=== PATIENT | male | born 1965 | race Caucasian/White ===

== ENCOUNTER 2020-01-31 13:00 | Inpatient (IN) | payer OTHER ==
[2020-01-31] MEDS ORDERED: DILTIAZEM DRIP BOLUS FROM BAG 1 MG SOLN IV ONE (13:19)
[2020-01-31 13:35] LABS: Basophils # (A) 0.1 k/uL (0-0.2); Basophils % (A) 1 %; Eosinophils % (A) 1 %; HCT 40.4 % (39.0-53.0); HGB 13.4 gm/dL (13.0-17.5); Lymphocytes # (A) 1.3 k/uL (1.0-4.8); Lymphocytes % (A) 17 %; MCHC 33.2 g/dL (31.0-37.0); MCV 105.2 fL (80.0-100.0); Macrocytosis Slight; Mean Platelet Volume 7.6; Monocytes # (A) 0.6 k/uL (0-1.0); Monocytes % (A) 8 %; Neutrophils # (A) 5.3 k/uL (1.3-7.7); Neutrophils % (A) 71 %; Platelet Count 276 k/uL (150-450); RBC 3.84 m/uL (4.30-5.90); RDW 13.1 % (11.5-15.5); WBC 7.6 k/uL (3.8-10.6)
[2020-01-31 13:45] LABS: ALT 81 U/L (4-49); AST 78 U/L (17-59); African American GFR (CKD) >90 (>60 ml/min/1.73 sqM); Albumin 4.1 g/dL (3.5-5.0); Alkaline Phosphatase 83 U/L (38-126); Anion Gap 5 mmol/L; Blood Urea Nitrogen 16 mg/dL (9-20); Carbon Dioxide 26 mmol/L (22-30); Chloride 107 mmol/L (98-107); Glucose 110 mg/dL (74-99); Magnesium 1.6 mg/dL (1.6-2.3); Non-African American GFR(CKD) >90 (>60 ml/min/1.73 sqM); Potassium 4.2 mmol/L (3.5-5.1); Sodium 138 mmol/L (137-145); Total Bilirubin 0.9 mg/dL (0.2-1.3); Total Protein 6.9 g/dL (6.3-8.2)
[2020-01-31] MEDS: DILTIAZEM 125 MG in SODIUM CHLORIDE 0.9% 100 ML IV SCH (13:47)
[2020-01-31 13:56] LABS: Partial Thromboplastin Time 25.6 sec (22.0-30.0)
--- NOTE | 2020-01-31 14:43 | XR ---
EXAMINATION TYPE: XR chest 2V DATE OF EXAM: 01/31/2020 COMPARISON: 03/07/2012 INDICATION: Dysrhythmia, fall TECHNIQUE: Frontal and lateral views of the chest are obtained. FINDINGS: The heart size is normal. The pulmonary vasculature is normal. No pneumothorax is evident The lungs are clear. There is hyperinflation and flattening the diaphragms compatible COPD. IMPRESSION: 1. No acute pulmonary process. 2. COPD
--- NOTE | 2020-01-31 14:45 | XR ---
EXAMINATION TYPE: XR foot complete RT DATE OF EXAM: 01/31/2020 COMPARISON: None HISTORY: Fall, pain TECHNIQUE: Three-view right foot FINDINGS: There is a transverse fracture of the proximal metaphyseal third metatarsal. No additional fractures are evident. Alignment appears preserved. Joint spaces are preserved. IMPRESSION: 1. Nondisplaced proximal third metatarsal metaphyseal fracture
--- NOTE | 2020-01-31 16:13 | ED ---
General Adult HPI - General Chief complaint: Recheck/Abnormal Lab/Rx Stated complaint: A Fib Time Seen by Provider: 01/31/20 13:05 Source: EMS Mode of arrival: EMS Limitations: no limitations - History of Present Illness Initial comments: Patient is a 54-year-old male with no reported past medical history who presents to the emergency department from urgent care. He states he presented there today because he fell off the couch yesterday. He rolled his right foot. He began having pain to the dorsum of his foot. Upon going into the urgent care and was noted that his heart rate was high. EKG was performed the patient was in A. fib. He denies previous history of irregular heart rhythm. Denies palpitations or chest pain. No previous cardiac history. Denies any fevers or chills. No shortness of breath. Denies any calf pain or swelling. No other alleviating, precipitating or modifying factors - Related Data Home Medications Medication Instructions Recorded Confirmed Ascorbic Acid [Vitamin C] 500 mg PO DAILY 01/31/20 01/31/20 Ibuprofen [Motrin] 800 mg PO Q8H PRN 01/31/20 01/31/20 Multivitamins, Thera [Multivitamin 1 tab PO DAILY 01/31/20 01/31/20 (formulary)] [place]-3 Fatty Acids/Fish Oil [Fish 1 cap PO DAILY 01/31/20 01/31/20 Oil 1,000 mg Softgel] Potassium Gluconate 99 mg PO DAILY 01/31/20 01/31/20 Allergies Allergy/AdvReac Type Severity Reaction Status Date / Time No Known Allergies Allergy Verified 01/31/20 14:12 Review of Systems ROS Statement: Those systems with pertinent positive or pertinent negative responses have been documented in the HPI. ROS Other: All systems not noted in ROS Statement are negative. Past Medical History Past Medical History: No Reported History History of Any Multi-Drug Resistant Organisms: None Reported Past Surgical History: No Surgical Hx Reported Past Psychological History: No Psychological Hx Reported Smoking Status: Current every day smoker Past Alcohol Use History: Occasional Past Drug Use History: Marijuana - Past Family History Father Family Medical History: Myocardial Infarction ([place]) Mother Family Medical History: Diabetes Mellitus General Exam Limitations: no limitations General appearance: alert, in no apparent distress Head exam: Present: atraumatic, normocephalic, normal inspection Eye exam: Present: normal appearance, PERRL, EOMI. Absent: scleral icterus, conjunctival injection, periorbital swelling ENT exam: Present: normal exam, mucous membranes moist Neck exam: Present: normal inspection. Absent: tenderness, meningismus, lymphadenopathy Respiratory exam: Present: normal lung sounds bilaterally. Absent: respiratory distress, wheezes, rales, rhonchi, stridor Cardiovascular Exam: Present: tachycardia, irregular rhythm, normal heart sounds. Absent: systolic murmur, diastolic murmur, rubs, gallop, clicks GI/Abdominal exam: Present: soft, normal bowel sounds. Absent: distended, tenderness, guarding, rebound, rigid Extremities exam: Present: full ROM, tenderness (right dorsal foot. overlying ecchymosis), normal capillary refill. Absent: pedal edema, joint swelling, calf tenderness Back exam: Present: normal inspection Neurological exam: Present: alert, oriented X3, CN II-XII intact Psychiatric exam: Present: normal affect, normal mood Skin exam: Present: warm, dry, intact, normal color. Absent: rash Course Vital Signs 01/31/20 01/31/20 01/31/20 13:04 13:23 14:31 Temperature 98.9 F Pulse Rate 83 162 H 140 H Respiratory 16 16 Rate Blood Pressure 142/105 118/88 O2 Sat by Pulse 95 96 Oximetry 01/31/20 01/31/20 01/31/20 14:49 15:28 16:50 Temperature Pulse Rate 113 H 91 110 H Respiratory 16 16 16 Rate Blood Pressure 129/99 122/88 108/88 O2 Sat by Pulse 95 97 99 Oximetry 01/31/20 17:15 Temperature Pulse Rate 115 H Respiratory 16 Rate Blood Pressure 103/81 O2 Sat by Pulse 97 Oximetry EKG Findings - EKG Comments: EKG Findings:: EKG at 1309 demonstrates A. fib with a rate of 13. QRS 80. QTC of 432. No acute ST segment elevations or depressions. EKG at 1320 demonstrates A. fib with a rate of 168. QRS E4. QTC of 464. No acute ST segment elevations or depressions Medical Decision Making - Medical Decision Making Upon arrival patient is placed into room 4. A thorough history and physical exam was performed. 12-lead EKG was performed which demonstrates A. fib with a rate of 183. Laboratory studies were conducted. IV was established the patient was started on Cardizem. Laboratory studies are unremarkable. Troponin is negative. Chest x-ray demonstrates no acute pulmonary process. Foot x-ray demonstrates a nondisplaced proximal third metatarsal fracture. Patient does have improvement in his heart rate on the Cardizem drip. Patient is placed in a posterior splint to the right lower extremity. I did recommend hospitalization for which the patient did agree to. Discussed the case with Dr. Sorensen who accepted admission. Cardiology will be consulted. He remained in stable condition - Lab Data Result diagrams: 02/04/20 07:16 02/04/20 07:16 Lab Results 01/31/20 01/31/20 01/31/20 Range/Units 13:20 13:20 13:20 WBC 7.6 (3.8-10.6) k/uL RBC 3.84 L (4.30-5.90) m/uL Hgb 13.4 (13.0-17.5) gm/dL Hct 40.4 (39.0-53.0) % MCV 105.2 H (80.0-100.0) fL MCH 35.0 (25.0-35.0) pg MCHC 33.2 (31.0-37.0) g/dL RDW 13.1 (11.5-15.5) % Plt Count 276 (150-450) k/uL Neutrophils % 71 % Lymphocytes % 17 % Monocytes % 8 % Eosinophils % 1 % Basophils % 1 % Neutrophils # 5.3 (1.3-7.7) k/uL Lymphocytes # 1.3 (1.0-4.8) k/uL Monocytes # 0.6 (0-1.0) k/uL Eosinophils # 0.0 (0-0.7) k/uL Basophils # 0.1 (0-0.2) k/uL Macrocytosis Slight PT 10.0 (9.0-12.0) sec INR 1.0 (<1.2) APTT 25.6 (22.0-30.0) sec Sodium 138 (137-145) mmol/L Potassium 4.2 (3.5-5.1) mmol/L Chloride 107 (98-107) mmol/L Carbon Dioxide 26 (22-30) mmol/L Anion Gap 5 mmol/L BUN 16 (9-20) mg/dL Creatinine 0.66 (0.66-1.25) mg/dL Est GFR (CKD-EPI)AfAm >90 (>60 ml/min/1.73 sqM) Est GFR (CKD-EPI)NonAf >90 (>60 ml/min/1.73 sqM) Glucose 110 H (74-99) mg/dL Calcium 9.0 (8.4-10.2) mg/dL Magnesium 1.6 (1.6-2.3) mg/dL Total Bilirubin 0.9 (0.2-1.3) mg/dL AST 78 H (17-59) U/L ALT 81 H (4-49) U/L Alkaline Phosphatase 83 (38-126) U/L Troponin I (0.000-0.034) ng/mL Total Protein 6.9 (6.3-8.2) g/dL Albumin 4.1 (3.5-5.0) g/dL TSH 2.040 (0.465-4.680) mIU/L 01/31/20 Range/Units 13:20 WBC (3.8-10.6) k/uL RBC (4.30-5.90) m/uL Hgb (13.0-17.5) gm/dL Hct (39.0-53.0) % MCV (80.0-100.0) fL MCH (25.0-35.0) pg MCHC (31.0-37.0) g/dL RDW (11.5-15.5) % Plt Count (150-450) k/uL Neutrophils % % Lymphocytes % % Monocytes % % Eosinophils % % Basophils % % Neutrophils # (1.3-7.7) k/uL Lymphocytes # (1.0-4.8) k/uL Monocytes # (0-1.0) k/uL Eosinophils # (0-0.7) k/uL Basophils # (0-0.2) k/uL Macrocytosis PT (9.0-12.0) sec INR (<1.2) APTT (22.0-30.0) sec Sodium (137-145) mmol/L Potassium (3.5-5.1) mmol/L Chloride (98-107) mmol/L Carbon Dioxide (22-30) mmol/L Anion Gap mmol/L BUN (9-20) mg/dL Creatinine (0.66-1.25) mg/dL Est GFR (CKD-EPI)AfAm (>60 ml/min/1.73 sqM) Est GFR (CKD-EPI)NonAf (>60 ml/min/1.73 sqM) Glucose (74-99) mg/dL Calcium (8.4-10.2) mg/dL Magnesium (1.6-2.3) mg/dL Total Bilirubin (0.2-1.3) mg/dL AST (17-59) U/L ALT (4-49) U/L Alkaline Phosphatase (38-126) U/L Troponin I <0.012 (0.000-0.034) ng/mL Total Protein (6.3-8.2) g/dL Albumin (3.5-5.0) g/dL TSH (0.465-4.680) mIU/L Critical Care Time Critical Care Time: Yes Critical Care Time: 35 minutes Disposition Clinical Impression: Atrial fibrillation with RVR, Metatarsal fracture Disposition: ADMITTED IP TO THIS [facility] Condition: Serious Is patient prescribed a controlled substance at d/c from ED?: No Decision to Admit Reason: Admit from EC Decision Date: 01/31/20 Decision Time: 16:16
[2020-01-31] MEDS ORDERED: NALOXONE 0.4 MG/ML 1 ML VIAL IV PRN (16:16)
[2020-01-31] MEDS ORDERED: HEPARIN SODIUM,PORCINE 5,000 UNIT/ML 1 ML VIAL IV ONE (16:18)
[2020-01-31] MEDS ORDERED: HEPARIN SODIUM,PORCINE 5,000 UNIT/ML 1 ML VIAL IV PRN (16:18)
[2020-01-31] MEDS ORDERED: HEPARIN SOD,PORK IN 0.45% NACL 25,000 UNIT in 0.45% NACL 1 250ML.BAG IV SCH (16:30)
[2020-02-01] MEDS: DILTIAZEM 125 MG in SODIUM CHLORIDE 0.9% 100 ML IV SCH (00:15)
[2020-02-01] MEDS: FAMOTIDINE 20 MG/2 ML VIAL IV SCH ×2 (08:39→20:41)
[2020-02-01 08:59] LABS: Basophils # (A) 0.1 k/uL (0-0.2); Basophils % (A) 1 %; Eosinophils # (A) 0.1 k/uL (0-0.7); Eosinophils % (A) 2 %; Lymphocytes # (A) 1.2 k/uL (1.0-4.8); Lymphocytes % (A) 20 %; MCH 34.6 pg (25.0-35.0); MCHC 32.4 g/dL (31.0-37.0); MCV 106.7 fL (80.0-100.0); Macrocytosis Moderate; Mean Platelet Volume 8.2; Monocytes # (A) 0.5 k/uL (0-1.0); Monocytes % (A) 8 %; Neutrophils # (A) 4.2 k/uL (1.3-7.7); Neutrophils % (A) 67 %; Platelet Count 258 k/uL (150-450); RBC 3.75 m/uL (4.30-5.90); WBC 6.2 k/uL (3.8-10.6)
[2020-02-01] MEDS ORDERED: METOPROLOL TARTRATE 25 MG TAB PO SCH (09:00)
[2020-02-01 09:04] LABS: ALT 66 U/L (4-49); AST 52 U/L (17-59); African American GFR (CKD) >90 (>60 ml/min/1.73 sqM); Albumin 3.8 g/dL (3.5-5.0); Alkaline Phosphatase 73 U/L (38-126); Anion Gap 4 mmol/L; Bilirubin, Delta 0.2 mg/dL (0.0-0.2); Bilirubin,Unconjugated 0.9 mg/dL (0.0-1.1); Blood Urea Nitrogen 12 mg/dL (9-20); Calcium 8.7 mg/dL (8.4-10.2); Carbon Dioxide 28 mmol/L (22-30); Chloride 103 mmol/L (98-107); Cholesterol 194 mg/dL (<200); Glucose 146 mg/dL (74-99); Magnesium 1.6 mg/dL (1.6-2.3); Non-African American GFR(CKD) >90 (>60 ml/min/1.73 sqM); Potassium 4.4 mmol/L (3.5-5.1); Sodium 135 mmol/L (137-145); Total Bilirubin 1.1 mg/dL (0.2-1.3); Total Protein 6.5 g/dL (6.3-8.2); Triglycerides 58 mg/dL (<150)
--- NOTE | 2020-02-01 09:05 | P.HPIM ---
History of Present Illness This is a pleasant 54 years old male with no significant past medical history, he smokes cigarettes every day about 1 pack per day, drinks half pint of liquor every day and smokes marijuana. He presents because of right foot pain, patient states that 2 days ago he was drinking at his couch and He was getting up to go to sleep when he tripped and fell and he hurt his right foot, patient is not sure if he passed out or no because he has been drinking. However he denies any chest pain or dyspnea or diarrhea or vomiting or other complaints, patient has been complaining of from right foot pain so he went to see his PCP Dr. Cotter me when he was noticed to have high heart rate about 160 and he was referred to emergency room Asthma about 1 pack per day, patient is counseled and he wants to quit but he declined a nicotine patch. He drinks about half pint of liquor every day, and uses marijuana with no other illicit drugs He denies depression or suicidal ideation Abdomen unremarkable CBC, INR, BMP. Liver enzymes slightly elevated with AST 78 and ALT 81, troponin 3 are negative with less than 0.012. EKG showing atrial fibrillation with RVR at 183. TSH is normal at 2.0 Right foot x-ray showing nondisplaced proximal third metatarsal metaphyseal fracture Chest x-ray: No acute process., COPD The emergency room patient was started on heparin and Cardizem drips Review of Systems CONSTITUTIONAL: No fever, no malaise, no fatigue. HEENT: No recent visual problems or hearing problems. Denied any sore throat. CARDIOVASCULAR: No orthopnea, PND, no palpitations, no syncope. PULMONARY: No shortness of breath, no cough, no hemoptysis. GASTROINTESTINAL: No diarrhea, no nausea, no vomiting, no abdominal pain. Normoactive bowel sounds. NEUROLOGICAL: No headaches, no weakness, no numbness. HEMATOLOGICAL: Denies any bleeding or petechiae. GENITOURINARY: Denies any burning micturition, frequency, or urgency. MUSCULOSKELETAL/RHEUMATOLOGICAL: Denies any joint pain, swelling, or any muscle pain. ENDOCRINE: Denies any polyuria or polydipsia. Past Medical History Past Medical History: No Reported History History of Any Multi-Drug Resistant Organisms: None Reported Past Surgical History: No Surgical Hx Reported Additional Past Anesthesia/Blood Transfusion Reaction / Comment(s): never recieved Past Psychological History: No Psychological Hx Reported Smoking Status: Current every day smoker Past Alcohol Use History: Occasional Past Drug Use History: Marijuana - Past Family History Father Family Medical History: Myocardial Infarction ([place]) Mother Family Medical History: Diabetes Mellitus Medications and Allergies Home Medications Medication Instructions Recorded Confirmed Type Ascorbic Acid [Vitamin C] 500 mg PO DAILY 01/31/20 01/31/20 History Ibuprofen [Motrin] 800 mg PO Q8H PRN 01/31/20 01/31/20 History Multivitamins, Thera [Multivitamin 1 tab PO DAILY 01/31/20 01/31/20 History (formulary)] [place]-3 Fatty Acids/Fish Oil [Fish 1 cap PO DAILY 01/31/20 01/31/20 History Oil 1,000 mg Softgel] Potassium Gluconate 99 mg PO DAILY 01/31/20 01/31/20 History Allergies Allergy/AdvReac Type Severity Reaction Status Date / Time No Known Allergies Allergy Verified 01/31/20 14:12 Physical Exam Vitals: Vital Signs Temp Pulse Pulse Resp BP BP Pulse Ox 02/01/20 03:51 97.8 F 78 16 117/80 94 L 01/31/20 22:16 98.1 F 78 18 109/75 95 01/31/20 20:00 98.1 F 78 18 109/75 95 01/31/20 18:54 103 H 18 01/31/20 18:01 97.7 F 103 H 18 115/72 97 01/31/20 17:15 115 H 16 103/81 97 01/31/20 16:50 110 H 16 108/88 99 01/31/20 15:28 91 16 122/88 97 01/31/20 14:49 113 H 16 129/99 95 01/31/20 14:31 140 H 16 118/88 96 01/31/20 13:23 162 H 01/31/20 13:04 98.9 F 83 16 142/105 95 Intake and Output 01/31/20 02/01/20 02/01/20 22:59 06:59 14:59 Intake Total 620 268.301 Output Total 225 Balance 620 43.301 Intake: IV 20 123.2 .9 @ 10 20 Diltiazem 125 mg In 70 Sodium Chloride 0.9% 100 ml @ Per Protocol IV .Q0M MELISSA Rx#:[id number] Heparin Sod,Pork in 0.45% 53.2 NaCl 25,000 unit In 0.45 % NaCl 1 250ml.bag @ 12 UNITS/KG/HR 7.62 mls/hr IV .Q24H MELISSA Rx#: [id number] Intake, IV Titration 145.101 Amount Diltiazem 125 mg In 96.333 Sodium Chloride 0.9% 100 ml @ Per Protocol IV .Q0M MELISSA Rx#:[id number] Heparin Sod,Pork in 0.45% 48.768 NaCl 25,000 unit In 0.45 % NaCl 1 250ml.bag @ 12 UNITS/KG/HR 7.62 mls/hr IV .Q24H MELISSA Rx#: [id number] Oral 600 Output: Urine 225 Other: Voiding Method Urinal Urinal # Voids 1 Weight 62 kg GENERAL: The patient is alert and oriented x3, not in any acute distress. Well developed, well nourished. HEENT: Pupils are round and equally reacting to light. EOMI. No scleral icterus. No conjunctival pallor. Normocephalic, atraumatic. No pharyngeal erythema. No thyromegaly. CARDIOVASCULAR: S1 and S2 present. No murmurs, rubs, or gallops. PULMONARY: Chest is clear to auscultation, no wheezing or crackles. ABDOMEN: Soft, nontender, nondistended, normoactive bowel sounds. No palpable organomegaly. MUSCULOSKELETAL: No joint swelling or deformity. -EXTREMITIES: No cyanosis, clubbing, or pedal edema. Right foot in temporal cast with dressing NEUROLOGICAL: Gross neurological examination did not reveal any focal deficits. SKIN: No rashes. No petechiae Results CBC & Chem 7: 02/01/20 07:47 01/31/20 13:20 Labs: Abnormal Lab Results - Last 24 Hours (Table) 01/31/20 01/31/20 01/31/20 Range/Units 13:20 13:20 22:09 RBC 3.84 L (4.30-5.90) m/uL MCV 105.2 H (80.0-100.0) fL APTT 36.9 H (22.0-30.0) sec Glucose 110 H (74-99) mg/dL AST 78 H (17-59) U/L ALT 81 H (4-49) U/L Thrombosis Risk Factor Assmnt - Choose All That Apply Any of the Below Risk Factors Present?: Yes Each Factor Represents 1 point: Age 41-60 years Other Risk Factors: No Other congenital or acquired thrombophilia - If yes, enter type in comment: No Thrombosis Risk Factor Assessment Total Risk Factor Score: 1 Thrombosis Risk Factor Assessment Level: Low Risk Assessment and Plan Assessment: A. fib with RVR, new onset and present on admission Right foot acute nondisplaced fracture of the third metatarsal metaphyseal bone Nicotine dependence Alcohol abuse, at-risk of alcohol withdrawal Mild alcoholic transaminitis Substance abuse with cannabis Plan: This is a pleasant 54 years old male who presents with a new onset A. fib and right foot fracture. Continue with Cardizem drip and heparin and switch to oral beta toney/calcium channel toney and Eliquis when heart rate is controlled per cardiology team recommendation. Monitor liver enzymes, continue with CIWA protocol and thiamine. Consult orthopedic team for his right foot fracture Labs and medication were reviewed.. Continue same treatment. Continue with symptomatic treatment. Resume home medication. Monitor lytes and vitals. DVT and GI prophylaxis. Further recommendations depends on the clinical course of the patient DVT prophylaxis: heparin GI Prophylaxis: Pepcid PT/OT: Pending, deferred to orthopedic evaluated the patient
[2020-02-01] MEDS ORDERED: THIAMINE 100 MG TAB PO SCH (09:15)
[2020-02-01 09:19] LABS: Partial Thromboplastin Time 39.5 sec (22.0-30.0)
[2020-02-01] MEDS ORDERED: LORazepam 2 MG/ML INJ IV PRN ×3 (09:24)
[2020-02-01] MEDS ORDERED: THIAMINE 100 MG/ML 2 ML VIAL IM STA (09:24)
[2020-02-01] MEDS ORDERED: METOPROLOL TARTRATE 25 MG TAB PO STA (09:40)
--- NOTE | 2020-02-01 09:44 | P.CNOR ---
History of Present Illness - [facility] Consult date: 02/01/20 Consult reason: fracture (Right foot) History of present illness: This is a 54-year-old gentleman who presented to the emergency department with complaint of right foot pain after falling off a couch. He was noted to be in atrial fibrillation and was admitted to the selective care unit. Orthopedics is consulted for fractures to the right foot. Past Medical History Past Medical History: No Reported History History of Any Multi-Drug Resistant Organisms: None Reported Past Surgical History: No Surgical Hx Reported Additional Past Anesthesia/Blood Transfusion Reaction / Comm: never recieved Past Psychological History: No Psychological Hx Reported Smoking Status: Current every day smoker Past Alcohol Use History: Occasional Past Drug Use History: Marijuana - Past Family History Father Family Medical History: Myocardial Infarction ([place]) Mother Family Medical History: Diabetes Mellitus Medications and Allergies Home Medications Medication Instructions Recorded Confirmed Type Ascorbic Acid [Vitamin C] 500 mg PO DAILY 01/31/20 01/31/20 History Ibuprofen [Motrin] 800 mg PO Q8H PRN 01/31/20 01/31/20 History Multivitamins, Thera [Multivitamin 1 tab PO DAILY 01/31/20 01/31/20 History (formulary)] [place]-3 Fatty Acids/Fish Oil [Fish 1 cap PO DAILY 01/31/20 01/31/20 History Oil 1,000 mg Softgel] Potassium Gluconate 99 mg PO DAILY 01/31/20 01/31/20 History Allergies Allergy/AdvReac Type Severity Reaction Status Date / Time No Known Allergies Allergy Verified 01/31/20 14:12 Physical Examination This is a pleasant 54-year-old male in no acute distress. He is alert and oriented 3. Exam of the head neck reveal no obvious deformity. He has full cervical spine motion without pain or difficulty. There is no tenderness with palpation about the cervical spine or paraspinal musculature. Exam the upper extremities reveals no obvious deformity. He has full shoulder, elbow, wrist and finger motion bilaterally. Neurovascular status to the upper extremities is intact. Exam of the lower extremities reveals a short leg splint in place to the right lower extremity. Splint is removed. He has swelling and ecchymosis to the dorsum of the right foot. There is tenderness with palpation about the base of the third metatarsal. He also has tenderness about the tarsal navicular medially. No pain with palpation about the calcaneus or the ankle. Neurovascular status to the lower extremity is intact. Results Right foot x-rays reveal a nondisplaced fracture of the base of the third metatarsal. There is also a small avulsion noted which appears to be possibly off of the navicular. No other fractures identified. - Labs Labs: Abnormal Lab Results - Last 24 Hours (Table) 01/31/20 01/31/20 01/31/20 Range/Units 13:20 13:20 22:09 RBC 3.84 L (4.30-5.90) m/uL MCV 105.2 H (80.0-100.0) fL APTT 36.9 H (22.0-30.0) sec Sodium (137-145) mmol/L Creatinine (0.66-1.25) mg/dL Glucose 110 H (74-99) mg/dL AST 78 H (17-59) U/L ALT 81 H (4-49) U/L 02/01/20 02/01/20 02/01/20 Range/Units 07:47 07:47 08:01 RBC 3.75 L (4.30-5.90) m/uL MCV 106.7 H (80.0-100.0) fL APTT 39.5 H (22.0-30.0) sec Sodium 135 L (137-145) mmol/L Creatinine 0.61 L (0.66-1.25) mg/dL Glucose 146 H (74-99) mg/dL AST (17-59) U/L ALT 66 H (4-49) U/L H & H 01/31/20 02/01/20 Range/Units 13:20 07:47 Hgb 13.4 13.0 (13.0-17.5) gm/dL Hct 40.4 40.0 (39.0-53.0) % Coagulation 01/31/20 02/01/20 Range/Units 13:20 07:47 INR 1.0 1.0 (<1.2) Result Diagrams: 02/01/20 07:47 02/01/20 08:01 Assessment and Plan (1) Atrial fibrillation with RVR Current Visit: Yes Status: Acute Code(s): I48.91 - UNSPECIFIED ATRIAL FIBRILLATION SNOMED Code(s): 536629861913207 (2) Metatarsal fracture Current Visit: Yes Status: Acute Code(s): S92.309A - FRACTURE OF UNSP METATARSAL BONE(S), UNSP FOOT, INIT SNOMED Code(s): 630907193 Plan: The clinical and x-ray findings are discussed with the patient. Fracture care is discussed. He will be placed in an equalizer boot for fracture immobilization. He may bear weight in the boot as tolerated. He is to follow- up in 2-3 weeks for follow-up x-ray and exam.
--- NOTE | 2020-02-01 10:44 | P.CRDCN ---
History of Present Illness History of present illness: HISTORY OF PRESENTING ILLNESS This is a pleasant 54-year-old male past medical history significant for chronic nicotine dependence and daily alcohol intake. He denies prior history of coronary artery disease and does not follow with a lens hardener for any reason. We have been asked to see in consultation for atrial fibrillation. He presents to the hospital with symptoms of right foot pain. He states he had tripped and fallen the night before. His foot initially didn't hurt and he thought it was just cramp which she does get from time to time. Imaging revealed he did have a third metatarsal fracture. An EKG was obtained revealing he was in atrial fibrillation with heart rate of 185. He was initiated on IV heparin along with IV Cardizem. This morning he is seen and examined sitting up in bed in no acute distress. He denies ever having had symptoms of palpitati ons, dizziness, chest pain or shortness of breath. Continues to be in A. fib with heart rates in the 90s currently. X-ray reveals no acute cardiopulmonary process with hyperinflation and flattening of the diaphragm compatible with COPD. Laboratory data reviewed, WBC 6.2, hemoglobin 13, platelets 258, sodium 135, potassium 4.4, creatinine 0.61, magnesium 1.6, cardiac enzymes negative 3, TSH 2.04. REVIEW OF SYSTEMS At the time of my exam: CONSTITUTIONAL: Denies fever or chills. CARDIOVASCULAR: Denies chest pain, shortness of breath, orthopnea, PND or palpitations. RESPIRATORY: Denies cough. GASTROINTESTINAL: Denies abdominal pain, diarrhea, constipation, nausea or vomiting. MUSCULOSKELETAL: Complains of right foot pain. NEUROLOGIC: Denies numbness, tingling or weakness. ENDOCRINE: Denies fatigue, weight change, polydipsia or polyurina. GENITOURINARY: Denies burning, hematuria or urgency with micturation. HEMATOLOGIC: Denies history of anemia or bleeding. PHYSICAL EXAMINATION Blood pressure 105/71 heart rate 79 afebrile and maintaining oxygen saturation on room air. CONSTITUTIONAL: No apparent distress. HEENT: Head is normocephalic. Pupils are equal, round. Sclerae anicteric. Mucous membranes of the mouth are moist. No JVD. No carotid bruit. CHEST EXAMINATION: Lungs are clear to auscultation. No chest wall tenderness is noted on palpation or with deep breathing. Diminished bilaterally. HEART EXAMINATION: Irregular rate and rhythm. S1, S2 heard. No murmurs, gallops or rub. Distant heart sounds. ABDOMEN: Soft, nontender. Positive bowel sounds. EXTREMITIES: Dorsalis pedis pulse on the right by Doppler, nonpalpable pulses on the left. Bilateral feet are warm to touch. Right foot has swelling to the anterior portion. No calf tenderness noted. NEUROLOGIC EXAMINATION: Patient is awake, alert and oriented x3. ASSESSMENT New-onset paroxysmal atrial fibrillation with rapid ventricular rate, currently in afib. Right metatarsal fracture, orthopedics is recommending boot immobilization and outpatient follow-up Chronic nicotine dependence Daily alcohol intake PLAN Obtain 2-D echocardiogram and Doppler study to assess cardiac structure and function. Initiate Lopressor 50 mg twice a day. Continue IV Cardizem until rates are more controlled. CHADS-VASC currently 0, howerver we will initiate Eliquis 5 mg twice a day for thromboembolic protection in case he requires cardioversion or ablation in the future. Check lipid panel. Complete alcohol cessation discussed in great detail with the patient. Thank you kindly for this consultation. Nurse Practitioner note has been reviewed, I agree with a documented findings and plan of care. Patient was seen and examined. Past Medical History Past Medical History: No Reported History History of Any Multi-Drug Resistant Organisms: None Reported Past Surgical History: No Surgical Hx Reported Additional Past Anesthesia/Blood Transfusion Reaction / Comment(s): never recieved Past Psychological History: No Psychological Hx Reported Smoking Status: Current every day smoker Past Alcohol Use History: Occasional Past Drug Use History: Marijuana - Past Family History Father Family Medical History: Myocardial Infarction ([place]) Mother Family Medical History: Diabetes Mellitus Medications and Allergies Home Medications Medication Instructions Recorded Confirmed Type Ascorbic Acid [Vitamin C] 500 mg PO DAILY 01/31/20 01/31/20 History Ibuprofen [Motrin] 800 mg PO Q8H PRN 01/31/20 01/31/20 History Multivitamins, Thera [Multivitamin 1 tab PO DAILY 01/31/20 01/31/20 History (formulary)] Radiant-3 Fatty Acids/Fish Oil [Fish 1 cap PO DAILY 01/31/20 01/31/20 History Oil 1,000 mg Softgel] Potassium Gluconate 99 mg PO DAILY 01/31/20 01/31/20 History Allergies Allergy/AdvReac Type Severity Reaction Status Date / Time No Known Allergies Allergy Verified 01/31/20 14:12 Physical Exam Vitals: Vital Signs Temp Pulse Pulse Resp BP BP Pulse Ox 02/01/20 03:51 97.8 F 78 16 117/80 94 L 01/31/20 22:16 98.1 F 78 18 109/75 95 01/31/20 20:00 98.1 F 78 18 109/75 95 01/31/20 18:54 103 H 18 01/31/20 18:01 97.7 F 103 H 18 115/72 97 01/31/20 17:15 115 H 16 103/81 97 01/31/20 16:50 110 H 16 108/88 99 01/31/20 15:28 91 16 122/88 97 01/31/20 14:49 113 H 16 129/99 95 01/31/20 14:31 140 H 16 118/88 96 01/31/20 13:23 162 H 01/31/20 13:04 98.9 F 83 16 142/105 95 Intake and Output 01/31/20 02/01/20 02/01/20 22:59 06:59 14:59 Intake Total 620 268.301 Output Total 225 Balance 620 43.301 Intake: IV 20 123.2 .9 @ 10 20 Diltiazem 125 mg In 70 Sodium Chloride 0.9% 100 ml @ Per Protocol IV .Q0M MELISSA Rx#:[id number] Heparin Sod,Pork in 0.45% 53.2 NaCl 25,000 unit In 0.45 % NaCl 1 250ml.bag @ 12 UNITS/KG/HR 7.62 mls/hr IV .Q24H MELISSA Rx#: [id number] Intake, IV Titration 145.101 Amount Diltiazem 125 mg In 96.333 Sodium Chloride 0.9% 100 ml @ Per Protocol IV .Q0M MELISSA Rx#:[id number] Heparin Sod,Pork in 0.45% 48.768 NaCl 25,000 unit In 0.45 % NaCl 1 250ml.bag @ 12 UNITS/KG/HR 7.62 mls/hr IV .Q24H MELISSA Rx#: [id number] Oral 600 Output: Urine 225 Other: Voiding Method Urinal Urinal # Voids 1 Weight 62 kg Results 02/01/20 07:47 02/01/20 08:01 Cardiac Enzymes 01/31/20 01/31/20 01/31/20 Range/Units 13:20 13:20 19:00 AST 78 H (17-59) U/L Troponin I <0.012 <0.012 (0.000-0.034) ng/mL 01/31/20 Range/Units 22:09 AST (17-59) U/L Troponin I <0.012 (0.000-0.034) ng/mL Coagulation 01/31/20 01/31/20 Range/Units 13:20 22:09 PT 10.0 (9.0-12.0) sec APTT 25.6 36.9 H (22.0-30.0) sec CBC 01/31/20 Range/Units 13:20 WBC 7.6 (3.8-10.6) k/uL RBC 3.84 L (4.30-5.90) m/uL Hgb 13.4 (13.0-17.5) gm/dL Hct 40.4 (39.0-53.0) % Plt Count 276 (150-450) k/uL Comprehensive Metabolic Panel 01/31/20 Range/Units 13:20 Sodium 138 (137-145) mmol/L Potassium 4.2 (3.5-5.1) mmol/L Chloride 107 (98-107) mmol/L Carbon Dioxide 26 (22-30) mmol/L BUN 16 (9-20) mg/dL Creatinine 0.66 (0.66-1.25) mg/dL Glucose 110 H (74-99) mg/dL Calcium 9.0 (8.4-10.2) mg/dL AST 78 H (17-59) U/L ALT 81 H (4-49) U/L Alkaline Phosphatase 83 (38-126) U/L Total Protein 6.9 (6.3-8.2) g/dL Albumin 4.1 (3.5-5.0) g/dL Current Medications Generic Name Dose Route Start Last Admin Trade Name Freq PRN Reason Stop Dose Admin Heparin Sodium (Porcine) 0 unit 01/31/20 16:18 Heparin Sodium,Porcine 5,000 Unit/Ml 1 Ml Vial IV PER PROTOCOL PRN Low PTT Protocol Diltiazem HCl 125 mg/ Sodium 125 mls @ 0 mls/hr 01/31/20 13:30 02/01/20 00:15 Chloride IV 10 ml/hr .Q0M MELISSA 10 mls/hr Administration Protocol Per Protocol Heparin Sodium/Sodium Chloride 250 mls @ 7.62 mls/hr 01/31/20 16:30 01/31/20 23:12 25,000 unit/ Sodium Chloride IV 14 units/kg/hr .Q24H MELISSA 8.89 mls/hr Titration Protocol 12 UNITS/KG/HR Naloxone HCl 0.2 mg 01/31/20 16:16 Naloxone 0.4 Mg/Ml 1 Ml Vial IV Q2M PRN Opioid Reversal Intake and Output 01/31/20 02/01/20 02/01/20 22:59 06:59 14:59 Intake Total 620 268.301 Output Total 225 Balance 620 43.301 Intake: IV 20 123.2 .9 @ 10 20 Diltiazem 125 mg In 70 Sodium Chloride 0.9% 100 ml @ Per Protocol IV .Q0M MELISSA Rx#:[id number] Heparin Sod,Pork in 0.45% 53.2 NaCl 25,000 unit In 0.45 % NaCl 1 250ml.bag @ 12 UNITS/KG/HR 7.62 mls/hr IV .Q24H MELISSA Rx#: [id number] Intake, IV Titration 145.101 Amount Diltiazem 125 mg In 96.333 Sodium Chloride 0.9% 100 ml @ Per Protocol IV .Q0M MELISSA Rx#:[id number] Heparin Sod,Pork in 0.45% 48.768 NaCl 25,000 unit In 0.45 % NaCl 1 250ml.bag @ 12 UNITS/KG/HR 7.62 mls/hr IV .Q24H MELISSA Rx#: [id number] Oral 600 Output: Urine 225 Other: Voiding Method Urinal Urinal # Voids 1 Weight 62 kg 01/31/20 13:20 01/31/20 13:20
[2020-02-01 11:10] VITALS: BMI 19.1
[2020-02-01] MEDS: APIXABAN 5 MG TAB PO SCH ×2 (11:44→20:41)
[2020-02-01 11:58] LABS: LDL Cholesterol,Calculated 63 mg/dL (0-99)
--- NOTE | 2020-02-01 12:03 | ECHOF ---
Referral Reason:new onset afib MEASUREMENTS -------- HEIGHT: 162.6 cm WEIGHT: 63.5 kg BP: RVIDd: 2.3 cm (< 3.3) IVSd: 0.8 cm (0.6 - 1.1) LVIDd: 5.4 cm (3.9 - 5.3) LVPWd: 1.1 cm (0.6 - 1.1) IVSs: 1.1 cm LVIDs: 4.5 cm LVPWs: 1.5 cm LA Diam: 3.5 cm (2.7 - 3.8) LAESV Index (A-L): 28.19 ml/m Ao Diam: 3.0 cm (2.0 - 3.7) AV Cusp: 1.7 cm (1.5 - 2.6) MV EXCURSION: 23.948 mm (> 18.000) MV EF SLOPE: 119 mm/s (70 - 150) EPSS: 1.6 cm RAP: 5.00 mmHg RVSP: 31.67 mmHg FINDINGS -------- Atrial fibrillation. This was a technically good study. The left ventricular size is normal. Left ventricular wall thickness is normal. Overall left vent ricular systolic function is moderate-severely impaired with, an EF between 30 - 35 %. Anterseptal Hypokinesis Septal Hypokinesis The right ventricle is normal in size. The left atrial size is normal. The right atrial size is normal. The aortic valve is trileaflet, and appears structurally normal. No aortic stenosis or regurgitation. Mild mitral regurgitation is present. Mild tricuspid regurgitation present. Right ventricular systolic pressure is normal at < 35 mmHg. There is no pulmonic regurgitation present. The aortic root size is normal. There is no pericardial effusion. CONCLUSIONS -------- 1. The left ventricular size is normal. 2. Left ventricular wall thickness is normal. 3. Overall left ventricular systolic function is moderate-severely impaired with, an EF between 30 - 35 %. 4. Anterseptal Hypokinesis 5. Septal Hypokinesis 6. The right ventricle is normal in size. 7. The left atrial size is normal. 8. The right atrial size is normal. 9. Mild mitral regurgitation is present. 10. Mild tricuspid regurgitation present. 11. There is no pulmonic regurgitation present. 12. The aortic root size is normal. 13. There is no pericardial effusion. RET[employer]ODUCT DEMO SPECIALIST: Michelle Colon RDCS
[2020-02-01 12:07] LABS: HDL Cholesterol 119 mg/dL (40-60)
[2020-02-01] MEDS ORDERED: HYDROcodone/APAP 5-325MG 1 EACH TAB PO PRN (15:34)
[2020-02-01] MEDS: THIAMINE 100 MG TAB PO SCH (17:40)
[2020-02-01] MEDS ORDERED: METOPROLOL TARTRATE 50 MG TAB PO SCH (21:00)
[2020-02-02] MEDS: THIAMINE 100 MG TAB PO SCH ×2 (06:45→17:10)
--- NOTE | 2020-02-02 08:49 | P.PN ---
Subjective Progress Note Date: 02/02/20 Principal diagnosis: Right foot fracture. Atrial fibrillation with RVR. This is a 54-year-old gentleman who presented to the emergency department with complaint of right foot pain after falling off a couch. He was noted to be in atrial fibrillation and was admitted to the selective care unit. Orthopedics is consulted for fractures to the right foot. 02/02/2020: Patient has received his boot. He has no new complaints or concerns from an orthopedic standpoint. Vital signs are stable at this time. Objective - Vital Signs Vital signs: Vital Signs Temp 98.1 F 02/02/20 04:00 Pulse 133 H 02/02/20 04:00 Resp 18 02/02/20 04:00 BP 116/70 02/02/20 04:00 Pulse Ox 97 02/02/20 04:00 Intake & Output 02/01/20 02/02/20 02/02/20 18:59 06:59 18:59 Intake Total 458 120 Output Total 425 Balance 33 120 Weight 62 kg 59.9 kg Intake: Oral 458 120 Output: Urine 425 Other: Voiding Method Urinal # Voids 2 2 0 # Bowel Movements 1 0 - Exam This is a pleasant 54-year-old male in no acute distress. He is alert and oriented at this time. Exam of the right foot reveals continued swelling and ecchymosis. The boot is at the bedside. He has full ankle motion without difficulty or pain. Neurovascular status to the lower extremities intact. - Labs CBC & Chem 7: 02/01/20 07:47 02/01/20 08:01 Labs: Abnormal Lab Results - Last 24 Hours (Table) 02/01/20 02/01/20 02/01/20 Range/Units 07:47 07:47 08:01 RBC 3.75 L (4.30-5.90) m/uL MCV 106.7 H (80.0-100.0) fL APTT 39.5 H (22.0-30.0) sec Sodium 135 L (137-145) mmol/L Creatinine 0.61 L (0.66-1.25) mg/dL Glucose 146 H (74-99) mg/dL ALT 66 H (4-49) U/L HDL Cholesterol 119 H (40-60) mg/dL Assessment and Plan (1) Atrial fibrillation with RVR Current Visit: Yes Status: Acute Code(s): I48.91 - UNSPECIFIED ATRIAL FIBRILLATION SNOMED Code(s): 292306308145112 (2) Metatarsal fracture Current Visit: Yes Status: Acute Code(s): S92.309A - FRACTURE OF UNSP METATARSAL BONE(S), UNSP FOOT, INIT SNOMED Code(s): 388526054 Plan: The clinical and x-ray findings are discussed with the patient. Fracture care is discussed. He will continue the equalizer boot for fracture immobilization. He may bear weight in the boot as tolerated. He is to follow-up in 2-3 weeks for follow-up x-ray and exam. We will sign off from an orthopedic standpoint at this time.
[2020-02-02] MEDS: APIXABAN 5 MG TAB PO SCH ×2 (09:12→20:29)
[2020-02-02] MEDS: FAMOTIDINE 20 MG TAB PO SCH ×2 (09:12→20:29)
--- NOTE | 2020-02-02 09:35 | P.PN ---
Subjective This is a pleasant 54 years old male with no significant past medical history, he smokes cigarettes every day about 1 pack per day, drinks half pint of liquor every day and smokes marijuana. He presents because of right foot pain, patient states that 2 days ago he was drinking at his couch and He was getting up to go to sleep when he tripped and fell and he hurt his right foot, patient is not sure if he passed out or no because he has been drinking. However he denies any chest pain or dyspnea or diarrhea or vomiting or other complaints, patient has been complaining of from right foot pain so he went to see his PCP Dr. Cotter me when he was noticed to have high heart rate about 160 and he was referred to emergency room Asthma about 1 pack per day, patient is counseled and he wants to quit but he declined a nicotine patch. He drinks about half pint of liquor every day, and uses marijuana with no other illicit drugs He denies depression or suicidal ideation Abdomen unremarkable CBC, INR, BMP. Liver enzymes slightly elevated with AST 78 and ALT 81, troponin 3 are negative with less than 0.012. EKG showing atrial fibrillation with RVR at 183. TSH is normal at 2.0 Right foot x-ray showing nondisplaced proximal third metatarsal metaphyseal fracture Chest x-ray: No acute process., COPD The emergency room patient was started on heparin and Cardizem drips 02/02/2020 Is currently awake with no chest pain or dyspnea. Overnight the patient he had a few pauses on the monitor during which he felt some lightheadedness. Cardizem was stopped and continued with the Eliquis His heart rate is going up to 133, currently is 96, continue with monitoring telemetry and senior technical specialist will evaluate the patient Echocardiogram showed ejection fraction of 30-35% with anteroseptal and septal hypokinesia, I discussed the case with cardiology team pause well. His CIWA score today is 0-1 Monitor potassium and magnesium Review of Systems CONSTITUTIONAL: No fever, no malaise, no fatigue. HEENT: No recent visual problems or hearing problems. Denied any sore throat. CARDIOVASCULAR: No orthopnea, PND, no palpitations, no syncope. PULMONARY: No shortness of breath, no cough, no hemoptysis. GASTROINTESTINAL: No diarrhea, no nausea, no vomiting, no abdominal pain. Normoactive bowel sounds. NEUROLOGICAL: No headaches, no weakness, no numbness. HEMATOLOGICAL: Denies any bleeding or petechiae. Active Medications Generic Name Dose Route Start Last Admin Trade Name Freq PRN Reason Stop Dose Admin Hydrocodone Bitart/Acetaminophen 1 each 02/01/20 15:34 02/01/20 15:59 Hydrocodone/Apap 5-325mg 1 Each Tab PO 1 each Q6HR PRN Administration Pain Apixaban 5 mg 02/01/20 09:45 02/02/20 09:12 Apixaban 5 Mg Tab PO 5 mg BID MELISSA Administration Famotidine 20 mg 02/02/20 09:00 02/02/20 09:12 Famotidine 20 Mg Tab PO 20 mg Q12HR MELISSA Administration Lorazepam 1 mg 02/01/20 09:24 Lorazepam 2 Mg/Ml Inj IV Q2HR PRN CIWA 8 or 9 Lorazepam 1 mg 02/01/20 09:24 Lorazepam 2 Mg/Ml Inj IV Q1HR PRN CIWA 10 to 15 Lorazepam 2 mg 02/01/20 09:24 Lorazepam 2 Mg/Ml Inj IV 02/03/20 09:24 Q10M PRN CIWA 16 or higher Naloxone HCl 0.2 mg 01/31/20 16:16 Naloxone 0.4 Mg/Ml 1 Ml Vial IV Q2M PRN Opioid Reversal Thiamine HCl 100 mg 02/01/20 17:30 02/02/20 06:45 Thiamine 100 Mg Tab PO 100 mg BID-W/MEALS MELISSA Administration Objective - Vital Signs Vital signs: Vital Signs Temp 98.1 F 02/02/20 04:00 Pulse 96 02/02/20 08:00 Resp 18 02/02/20 08:00 BP 100/69 02/02/20 08:00 Pulse Ox 97 02/02/20 04:00 Intake & Output 02/01/20 02/02/20 02/02/20 18:59 06:59 18:59 Intake Total 458 120 Output Total 425 Balance 33 120 Weight 62 kg 59.9 kg Intake: Oral 458 120 Output: Urine 425 Other: Voiding Method Urinal # Voids 2 2 0 # Bowel Movements 1 0 - Labs CBC & Chem 7: 02/01/20 07:47 02/01/20 08:01 Labs: Abnormal Lab Results - Last 24 Hours (Table) 02/01/20 Range/Units 08:01 HDL Cholesterol 119 H (40-60) mg/dL Assessment and Plan Assessment: A. fib with RVR, new onset and present on admission Cardiac pauses with lightheadedness Right foot acute nondisplaced fracture of the third metatarsal metaphyseal bone Nicotine dependence Alcohol abuse, at-risk of alcohol withdrawal Mild alcoholic transaminitis Substance abuse with cannabis Plan: This is a pleasant 54 years old male who presents with a new onset A. fib and right foot fracture. Continue with Eliquis, hold Cardizem drip due to pauses. Follow-up with senior technical specialist for further recommendation for monitor the patient closely as well. Monitor liver enzymes, continue with CIWA protocol and th iamine. orthopedic team for his right foot fracture, they recommended equalizer boots and follow-up as an outpatient to repeat foot x-ray in 2-3 weeks Labs and medication were reviewed.. Continue same treatment. Continue with symptomatic treatment. Resume home medication. Monitor lytes and vitals. DVT and GI prophylaxis. Further recommendations depends on the clinical course of the patient DVT prophylaxis: heparin GI Prophylaxis: Pepcid PT/OT: Pending
[2020-02-02 10:19] LABS: African American GFR (CKD) >90 (>60 ml/min/1.73 sqM); Anion Gap 3 mmol/L; Blood Urea Nitrogen 15 mg/dL (9-20); Calcium 9.1 mg/dL (8.4-10.2); Carbon Dioxide 27 mmol/L (22-30); Chloride 102 mmol/L (98-107); Glucose 110 mg/dL (74-99); Magnesium 1.7 mg/dL (1.6-2.3); Non-African American GFR(CKD) >90 (>60 ml/min/1.73 sqM); Potassium 4.3 mmol/L (3.5-5.1); Sodium 132 mmol/L (137-145)
[2020-02-02] MEDS: METOPROLOL TARTRATE 25 MG TAB PO SCH ×2 (10:42→20:29)
[2020-02-02] MEDS: SPIRONOLACTONE 25 MG TAB PO SCH (12:10)
--- NOTE | 2020-02-02 12:15 | P.PN ---
Subjective Progress Note Date: 02/02/20 this is a pleasant 54-year-old gentleman with past medical history for chronic nicotine dependence, daily alcohol use of at least a pint of whiskey per day. No prior history of coronary artery disease according to the patient. Cardiology was initially requested to see the patient in consultation yesterday for atrial fibrillation with a rapid ventricular response. Patient also incurred a fall prior to coming to the hospital, the imaging revealed that he had a third metatarsal fracture and currently has a boot in place to that foot. The patient was initiated on IV Cardizem as well as beta toney yesterday, he was noted on the monitor to have pauses of 45 seconds in duration. At the time of the pauses patient states that he felt very dizzy, he was seeing stars. The IV Cardizem and beta toney were discontinued yesterday. This morning the patient remains in atrial fibrillation, rate is in the 1:30 to 140 range. He also had an echocardiogram with Doppler study performedwhich revealed an ejection fraction of 30-35%, anterior septal hypokinesia noted.the patient was seen and examined this morning, overall he feels well, no symptoms of dizziness this morning, his breathing is stable and he denies any palpitations. The patient did state this morning however that he definitely will quit drinking alcohol, he is quite concerned about his arrhythmia and decreased heart muscle function. The patient was initiated yesterday on Eliquis, we will check to make sure that the patient has adequate coverage for this. We will also start him on some metoprolol tartrate today 25 mg one tablet by mouth twice a day and continue to monitor the patient. Objective - Vital Signs Vital signs: Vital Signs Temp 98.1 F 02/02/20 04:00 Pulse 90 02/02/20 12:00 Resp 16 02/02/20 12:00 BP 112/81 02/02/20 12:00 Pulse Ox 99 02/02/20 12:00 Intake & Output 02/01/20 02/02/20 02/02/20 18:59 06:59 18:59 Intake Total 458 120 Output Total 425 Balance 33 120 Weight 62 kg 59.9 kg Intake: Oral 458 120 Output: Urine 425 Other: Voiding Method Urinal # Voids 2 2 0 # Bowel Movements 1 0 - Exam PHYSICAL EXAMINATION: GENERAL:54-year-old gentleman in no acute distress at the time of my examination HEENT: Head is atraumatic, normocephalic. Pupils equal, round. Sclera anicteric. Conjunctiva are clear. Mucous membranes of the mouth are moist. Neck is supple. There is no elevated jugular venous pressure.no carotid bruit is heard. HEART EXAMINATION: [Heart S1, S2 irregularly irregular. No murmur or gallop heard.] CHEST EXAMINATION:[ Lungs are clear to auscultation and precussion. No chest wall tenderness is noted on palpation or with deep breathing.] ABDOMEN: [ Soft, nontender. Bowel sounds are heard. No organomegaly noted]. EXTREMITIES:[ 2+ peripheral pulses with no evidence of peripheral edema and no calf tenderness noted]. The patient does have an orthopedic boot in place to the right foot NEUROLOGIC [patient is awake, alert and oriented 3.] . - Labs CBC & Chem 7: 02/01/20 07:47 02/02/20 09:56 Labs: Abnormal Lab Results - Last 24 Hours (Table) 02/01/20 02/02/20 Range/Units 08:01 09:56 Sodium 132 L (137-145) mmol/L Glucose 110 H (74-99) mg/dL HDL Cholesterol 119 H (40-60) mg/dL Assessment and Plan Plan: assessment and plan #1 persistent atrial fibrillation with rapid ventricular response,on Eliquis for anticoagulation #2 episodes of 45 second pauses, while on IV Cardizem yesterday, IV Cardizem has been discontinued #3 cardiomyopathy, likely nonischemic, could be related to EtOH use as well as A. fib with RVR #4 chronic nicotine dependence #5 daily alcohol intake of at least a pint per day Plan We will start the patient on 25 mg of Lopressor twice a day. We will continue to monitor for any significant pauses. If the blood pressure tolerates we will start the patient on GRODON inhibitor and Aldactone. Down the road, as an outpatient, patient will need further evaluation to rule out underlying coronary artery disease. He has been advised regarding the importance of complete alcohol cessation. DNP note has been reviewed, I agree with a documented findings and plan of care. Patient was seen and examined.
[2020-02-03] MEDS: THIAMINE 100 MG TAB PO SCH ×2 (06:36→18:57)
[2020-02-03] MEDS: SPIRONOLACTONE 25 MG TAB PO SCH (08:35)
[2020-02-03] MEDS: METOPROLOL TARTRATE 25 MG TAB PO SCH ×2 (08:35→20:29)
[2020-02-03] MEDS: APIXABAN 5 MG TAB PO SCH ×2 (08:35→20:29)
[2020-02-03] MEDS: FAMOTIDINE 20 MG TAB PO SCH ×2 (08:35→20:29)
--- NOTE | 2020-02-03 11:46 | P.PN ---
Subjective Progress Note Date: 02/03/20 Patient is sitting up resting comfortably in recliner chair. In no apparent distress at this time. He states he is overall feeling well. He states he was asymptomatic during his bradycardia episodes overnight. He denies any chest pain or chest pressure. No shortness of breath, orthopnea, dizziness, or vertigo. GENERAL: This is a 54-year-old male in no apparent distress at the time of my examination. HEENT: Mucous membranes of the mouth are moist. Neck is supple. There is no jugular venous distention. No carotid bruit is heard. LUNGS: Clear to auscultation no wheezes, rales or rhonchi. Diminished bilaterally. No chest wall tenderness is noted on palpation or with deep breathing. HEART: Irregular rate and rhythm without murmurs, rubs or gallops. S1 and S2 heard. ABDOMEN: Soft, nontender. Bowel sounds are heard. No organomegaly noted. EXTREMITIES: No evidence of peripheral edema and no calf tenderness noted. VASCULAR: Radial and dorsalis pedis pulses palpated, no evidence of clubbing. NEUROLOGIC: Patient is awake, alert and oriented x3. VITALS: Blood pressure 110/76, SpO2 98% on room air, respiratory rate 18, pulse rate 115, temperature 90.8F TELEMETRY: Persistent atrial fibrillation with heart rates ranging from 45-160 bpm. Overnight multiple pulses were noted, with the longest being 2.7 seconds. LABS: From February 01 sodium 132, potassium 4.3, BUN 15, creatinine 0.66 IMPRESSION: #1 persistent atrial fibrillation with RVR #2 Sick sinus syndrome, multiple pauses overnight with the longest being 2.7 seconds #3 cardiomyopathy #4 EtOH abuse #5 current smoker PLAN: Continue current medication regimen. Patient will undergo CINYD and cardioversion on Wednesday for persistent atrial fibrillation. Objective - Vital Signs Vital signs: Vital Signs Temp 98 F 02/03/20 08:40 Pulse 117 H 02/03/20 08:40 Resp 18 02/03/20 08:40 BP 110/76 02/03/20 08:40 Pulse Ox 98 02/03/20 08:40 Intake & Output 02/02/20 02/03/20 02/03/20 18:59 06:59 18:59 Intake Total 600 Balance 600 Weight 60.5 kg Intake: Oral 600 Other: Voiding Method Urinal Urinal # Voids 1 3 # Bowel Movements 0 - Labs CBC & Chem 7: 02/01/20 07:47 02/02/20 09:56
[2020-02-03] MEDS: ALPRAZolam 0.5 MG TAB PO PRN (20:30)
--- NOTE | 2020-02-03 23:05 | P.PN ---
Subjective Progress Note Date: 02/03/20 Principal diagnosis: A fib with RVR Mr. Arteaga is a 54-year-old male with a past medical history of smoking, alcohol coming in for right foot pain. Patient states that 2 days back he hit the couch and hurt his right foot. Patient was not sure if he passed out because he has been drinking. At the time of admission patient was found to be in atrial fibrillation with rapid ventricular rate and admitted for further management. On 02/03/2020-patient is sitting up in a chair at the bedside appears to be in no acute distress. Patient states that he is anxious about the procedure that he is scheduled for Wednesday which is CINDY and cardioversion. Other than that patient denies having any chest pain or palpitations. No cough or difficulty breathing. No abdominal pain nausea vomiting or diarrhea. No hematuria or dysuria. Patient's vitals have been reviewed he continues to be in atrial fibrillation with rate controlled. On reviewing his labs sodium 132, potassium 4.3 chloride 102 bicarb 27 BUN 15 creatinine 0.66. Active Medications Hydrocodone Bitart/Acetaminophen (Hydrocodone/Apap 5-325mg 1 Each Tab) 1 each PO Q6HR PRN PRN Reason: Pain Last Admin: 02/01/20 15:59 Dose: 1 each Documented by: Alprazolam (Alprazolam 0.5 Mg Tab) 0.5 mg PO TID PRN PRN Reason: Anxiety Last Admin: 02/03/20 20:30 Dose: 0.5 mg Documented by: Apixaban (Apixaban 5 Mg Tab) 5 mg PO BID [facility] Last Admin: 02/03/20 20:29 Dose: 5 mg Documented by: Famotidine (Famotidine 20 Mg Tab) 20 mg PO Q12HR [facility] Last Admin: 02/03/20 20:29 Dose: 20 mg Documented by: Lorazepam (Lorazepam 2 Mg/Ml Inj) 1 mg IV Q2HR PRN PRN Reason: CIWA 8 or 9 Lorazepam (Lorazepam 2 Mg/Ml Inj) 1 mg IV Q1HR PRN PRN Reason: CIWA 10 to 15 Metoprolol Tartrate (Metoprolol Tartrate 25 Mg Tab) 25 mg PO BID [facility] Last Admin: 02/03/20 20:29 Dose: 25 mg Documented by: Naloxone HCl (Naloxone 0.4 Mg/Ml 1 Ml Vial) 0.2 mg IV Q2M PRN PRN Reason: Opioid Reversal Spironolactone (Spironolactone 25 Mg Tab) 25 mg PO DAILY [facility] Last Admin: 02/03/20 08:35 Dose: 25 mg Documented by: Thiamine HCl (Thiamine 100 Mg Tab) 100 mg PO BID-W/MEALS [facility] Last Admin: 02/03/20 18:57 Dose: 100 mg Documented by: Objective - Vital Signs Vital signs: Vital Signs Temp 98.2 F 02/03/20 16:00 Pulse 103 H 02/03/20 16:00 Resp 18 02/03/20 16:00 BP 104/64 02/03/20 16:00 Pulse Ox 97 02/03/20 16:00 Intake & Output 02/02/20 02/03/20 02/03/20 18:59 06:59 18:59 Intake Total 600 460 Output Total 800 Balance 600 -340 Weight 60.5 kg Intake: Oral 600 460 Output: Urine 800 Other: Voiding Method Urinal Urinal # Voids 1 3 # Bowel Movements 0 - Exam Physical exam GENERAL: The patient is alert and oriented x3, not in any acute distress. Well developed, well nourished. HEENT: Pupils are round and equally reacting to light. EOMI. No scleral icterus. No conjunctival pallor. Normocephalic, atraumatic. No pharyngeal erythema. No thyromegaly. CARDIOVASCULAR: Irregularly irregular PULMONARY: Chest is clear to auscultation, no wheezing or crackles. ABDOMEN: Soft, nontender, nondistended, normoactive bowel sounds. No palpable organomegaly. MUSCULOSKELETAL: No joint swelling or deformity. -EXTREMITIES: No cyanosis, clubbing, or pedal edema. Right foot in equalizer boot NEUROLOGICAL: Gross neurological examination did not reveal any focal deficits. SKIN: No rashes. No petechiae - Labs CBC & Chem 7: 02/01/20 07:47 02/02/20 09:56 Assessment and Plan Assessment: ASSESSMENT A. fib with RVR, new onset and present on admission Cardiac pauses with lightheadedness Right foot acute nondisplaced fracture of the third metatarsal metaphyseal bone Nicotine dependence Alcohol abuse, at-risk of alcohol withdrawal Mild alcoholic transaminitis Substance abuse with cannabis PLAN: Continue with Eliquis, hold Cardizem drip due to pauses. Follow-up with supervisor [employer] for further recommendation for monitor the patient closely as well. Plan for CINDY and Cardioversion on Wednesday. Monitor liver enzymes, continue with CIWA protocol and thiamine. orthopedic team for his right foot fracture, they recommended equalizer boots and follow-up as an outpatient to repeat foot x-ray in 2-3 weeks Continue with current medication regimen. Continue with symptomatic treatment. . Monitor lytes and vitals. DVT and GI prophylaxis. Further recommendations depends on the clinical course of the patient
[2020-02-04] MEDS: THIAMINE 100 MG TAB PO SCH ×2 (06:42→17:33)
[2020-02-04 07:43] LABS: African American GFR (CKD) >90 (>60 ml/min/1.73 sqM); Anion Gap 7 mmol/L; Blood Urea Nitrogen 20 mg/dL (9-20); Calcium 9.6 mg/dL (8.4-10.2); Carbon Dioxide 27 mmol/L (22-30); Chloride 101 mmol/L (98-107); Glucose 110 mg/dL (74-99); Non-African American GFR(CKD) >90 (>60 ml/min/1.73 sqM); Sodium 135 mmol/L (137-145)
[2020-02-04 07:44] LABS: Potassium 4.6 mmol/L (3.5-5.1)
[2020-02-04 08:23] LABS: HCT 50.8 % (39.0-53.0); MCHC 32.7 g/dL (31.0-37.0); Macrocytosis Marked; Mean Platelet Volume 7.5; Platelet Count 354 k/uL (150-450); RBC 4.62 m/uL (4.30-5.90); RDW 12.7 % (11.5-15.5); WBC 8.4 k/uL (3.8-10.6)
[2020-02-04 08:29] LABS: HGB 16.6 gm/dL (13.0-17.5)
[2020-02-04] MEDS: APIXABAN 5 MG TAB PO SCH ×2 (09:13→20:49)
[2020-02-04] MEDS: METOPROLOL TARTRATE 25 MG TAB PO SCH ×2 (09:13→20:49)
[2020-02-04] MEDS: FAMOTIDINE 20 MG TAB PO SCH ×2 (09:13→20:49)
[2020-02-04] MEDS: SPIRONOLACTONE 25 MG TAB PO SCH (09:13)
[2020-02-04] MEDS: ALPRAZolam 0.5 MG TAB PO PRN ×2 (09:13→17:33)
[2020-02-04 10:03] LABS: Eosinophils # (M) 0.25 k/uL (0-0.7); Lymphocytes # (M) 2.35 k/uL (1.0-4.8); Monocytes # (M) 1.01 k/uL (0-1.0); Neutrophils # (M) 4.79 k/uL (1.3-7.7); Neutrophils % (M) 57 %; Nucleated Red Blood Cells 0 /100 WBC (0-0); Total Cells Counted 100
--- NOTE | 2020-02-04 12:42 | P.PN ---
Subjective Patient is in A. fib with RVR However he has tachybradycardia syndrome Heart rate 703 beats a minute He is a very low-dose beta blockers A higher dose beta blockers and on IV Cardizem he had a very long pauses and was extremely symptomatic and therefore this was discontinued He has a history of heavy alcohol use and may be in withdrawal Hemoglobin 16.6 Sodium 135 potassium 4.6 BUN and creatinine are normal troponins are normal TSH is 2.0 Afebrile 97.9F pulse rate greater than 100 beats a minute irregular Breath sounds diminished bilaterally no rhonchi no crackles No respiratory distress abdomen is soft nontender Extremity is warm no edema Impression tachybradycardia syndrome with A. fib with RVR that conglobate 160 beats a minute Yet there are times when he becomes extremely bradycardic and therefore we had to back off on his AV richard blocking drugs He has a cardiomyopathy likely alcohol-related Suggest CINDY tomorrow if he does not have thrombus then I would proceed with amiodarone loading IV and cardiovert him after a few days of loading with amiodarone The risk is that if he proceed with electrical cardioversion right away, in the state of withdrawal hemoglobin back into atrial fibrillation Objective - Vital Signs Vital signs: Vital Signs Temp 97.9 F 02/04/20 11:38 Pulse 103 H 02/04/20 11:38 Resp 16 02/04/20 11:38 BP 99/66 02/04/20 11:38 Pulse Ox 98 02/04/20 11:38 Intake & Output 02/03/20 02/04/20 02/04/20 19:59 06:59 18:59 Intake Total 240 Output Total Balance 240 Weight Intake: Oral 240 Output: Urine Other: Voiding Method Toilet Urinal # Voids - Labs CBC & Chem 7: 02/04/20 07:16 02/04/20 07:16 Labs: Abnormal Lab Results - Last 24 Hours (Table) 02/04/20 02/04/20 Range/Units 07:16 07:16 MCV 110.0 H (80.0-100.0) fL MCH 36.0 H (25.0-35.0) pg Monocytes # (Manual) 1.01 H (0-1.0) k/uL Macrocytosis Marked A Sodium 135 L (137-145) mmol/L Glucose 110 H (74-99) mg/dL
--- NOTE | 2020-02-04 23:47 | P.PN ---
Subjective Progress Note Date: 02/04/20 Principal diagnosis: A fib with RVR Mr. Arteaga is a 54-year-old male with a past medical history of smoking, alcohol coming in for right foot pain. Patient states that 2 days back he hit the couch and hurt his right foot. Patient was not sure if he passed out because he has been drinking. At the time of admission patient was found to be in atrial fibrillation with rapid ventricular rate and admitted for further management. On 02/03/2020-patient is sitting up in a chair at the bedside appears to be in no acute distress. Patient states that he is anxious about the procedure that he is scheduled for Wednesday which is CINDY and cardioversion. Other than that patient denies having any chest pain or palpitations. No cough or difficulty breathing. No abdominal pain nausea vomiting or diarrhea. No hematuria or dysuria. Patient's vitals have been reviewed he continues to be in atrial fibrillation with rate controlled. On reviewing his labs sodium 132, potassium 4.3 chloride 102 bicarb 27 BUN 15 creatinine 0.66. On 02/04/2020 patient is sitting up in a chair at the bedside appears to be no acute distress. No acute events reported overnight by nursing staff. Patient mentions about being anxious for tomorrow's procedure. He denies any chest pain or palpitations. No cough or difficulty breathing. No abdominal pain nausea vomiting or diarrhea. No dysuria or hematuria. On reviewing the vitals temperature 97.5 heart rate 100s - 140s, respiratory rate 16, blood pressure 100 x 69 and saturating at 97% on room air. On reviewing the patient's labs from this morning white count of 8.4, hemoglobin 16.6, MCV 110, platelets 354, sodium 135, potassium 4.6, chloride 101, bicarb 27, BUN 20, creatinine 0.8. Active Medications Hydrocodone Bitart/Acetaminophen (Hydrocodone/Apap 5-325mg 1 Each Tab) 1 each PO Q6HR PRN PRN Reason: Pain Last Admin: 02/01/20 15:59 Dose: 1 each Documented by: Alprazolam (Alprazolam 0.5 Mg Tab) 0.5 mg PO TID PRN PRN Reason: Anxiety Last Admin: 02/04/20 17:33 Dose: 0.5 mg Documented by: Apixaban (Apixaban 5 Mg Tab) 5 mg PO BID [facility] Last Admin: 02/04/20 20:49 Dose: 5 mg Documented by: Famotidine (Famotidine 20 Mg Tab) 20 mg PO Q12HR [facility] Last Admin: 02/04/20 20:49 Dose: 20 mg Documented by: Lorazepam (Lorazepam 2 Mg/Ml Inj) 1 mg IV Q2HR PRN PRN Reason: CIWA 8 or 9 Lorazepam (Lorazepam 2 Mg/Ml Inj) 1 mg IV Q1HR PRN PRN Reason: CIWA 10 to 15 Metoprolol Tartrate (Metoprolol Tartrate 25 Mg Tab) 25 mg PO BID [facility] Last Admin: 02/04/20 20:49 Dose: 25 mg Documented by: Naloxone HCl (Naloxone 0.4 Mg/Ml 1 Ml Vial) 0.2 mg IV Q2M PRN PRN Reason: Opioid Reversal Spironolactone (Spironolactone 25 Mg Tab) 25 mg PO DAILY [facility] Last Admin: 02/04/20 09:13 Dose: 25 mg Documented by: Thiamine HCl (Thiamine 100 Mg Tab) 100 mg PO BID-W/MEALS [facility] Last Admin: 02/04/20 17:33 Dose: 100 mg Documented by: Objective - Vital Signs Vital signs: Vital Signs Temp 97.9 F 02/04/20 11:38 Pulse 103 H 02/04/20 11:38 Resp 16 02/04/20 11:38 BP 99/66 02/04/20 11:38 Pulse Ox 98 02/04/20 11:38 Intake & Output 02/03/20 02/04/20 02/04/20 19:59 06:59 18:59 Intake Total 480 Output Total Balance 480 Weight Intake: Oral 480 Output: Urine Other: Voiding Method Toilet Urinal # Voids 2 - Exam Physical exam GENERAL: The patient is alert and oriented x3, not in any acute distress. Well developed, well nourished. HEENT: Pupils are round and equally reacting to light. EOMI. No scleral icterus. No conjunctival pallor. Normocephalic, atraumatic. No pharyngeal erythema. No thyromegaly. CARDIOVASCULAR: Irregularly irregular PULMONARY: Chest is clear to auscultation, no wheezing or crackles. ABDOMEN: Soft, nontender, nondistended, normoactive bowel sounds. No palpable organomegaly. MUSCULOSKELETAL: No joint swelling or deformity. -EXTREMITIES: No cyanosis, clubbing, or pedal edema. Right foot in equalizer boot NEUROLOGICAL: Gross neurological examination did not reveal any focal deficits. - Labs CBC & Chem 7: 02/04/20 07:16 02/04/20 07:16 Labs: Abnormal Lab Results - Last 24 Hours (Table) 02/04/20 02/04/20 Range/Units 07:16 07:16 MCV 110.0 H (80.0-100.0) fL MCH 36.0 H (25.0-35.0) pg Monocytes # (Manual) 1.01 H (0-1.0) k/uL Macrocytosis Marked A Sodium 135 L (137-145) mmol/L Glucose 110 H (74-99) mg/dL Assessment and Plan Assessment: ASSESSMENT A. fib with RVR, new onset and present on admission Cardiac pauses with lightheadedness Right foot acute nondisplaced fracture of the third metatarsal metaphyseal bone Nicotine dependence Alcohol abuse, at-risk of alcohol withdrawal Mild alcoholic transaminitis Substance abuse with cannabis PLAN: Continue with Eliquis, hold Cardizem drip due to pauses. Plan for CINDY and Cardioversion on Wednesday by Cardiology . Monitor liver enzymes, continue with CIWA protocol and thiamine. Orthopedic team for his right foot fracture, they recommended equalizer boots and follow-up as an outpatient to repeat foot x-ray in 2-3 weeks Continue with current medication regimen. Continue with symptomatic treatment. . Monitor lytes and vitals. DVT and GI prophylaxis. Further recommendations depends on the clinical course of the patient
[2020-02-05] MEDS: THIAMINE 100 MG TAB PO SCH ×2 (06:43→17:02)
[2020-02-05] MEDS: SPIRONOLACTONE 25 MG TAB PO SCH (08:32)
[2020-02-05] MEDS: METOPROLOL TARTRATE 25 MG TAB PO SCH ×2 (08:32→20:35)
[2020-02-05] MEDS: APIXABAN 5 MG TAB PO SCH ×2 (08:32→20:35)
[2020-02-05] MEDS: FAMOTIDINE 20 MG TAB PO SCH ×2 (08:32→20:35)
[2020-02-05] MEDS ORDERED: fentaNYL (PF) 50 MCG/ML 2 ML AMP ONE (09:53)
[2020-02-05] MEDS ORDERED: SODIUM CHLORIDE 0.9% 500 ML 500 ML IV ONE (10:10)
[2020-02-05] MEDS: BENZOCAINE SPRAY 1 CAN MUCOUS MEM ONE ×2 (10:15→10:16)
[2020-02-05] MEDS ORDERED: fentaNYL (PF) 50 MCG/ML 2 ML AMP IV ONE (10:16)
[2020-02-05] MEDS ORDERED: MIDAZOLAM 2 MG/2 ML VIAL IV ONE (10:16)
--- NOTE | 2020-02-05 11:14 | ECHOT ---
TRANSESOPHAGEAL ECHOCARDIOGRAM INDICATION: Persistent atrial fibrillation to rule out intracardiac thrombus. PROCEDURE NOTE: After obtaining informed consent, transesophageal echocardiogram is performed in left lateral position using an Omni plane probe. Local and IV sedation were obtained using Xylocaine spray, 2 mg of Versed and fentanyl. Patient tolerated the procedure well without any obvious immediate complications. I performed 2D color Doppler evaluation of the agitated saline contrast study was injected. FINDINGS: 1. There is no intracardiac thrombus within the left atrial appendage, left atrium, right atrium, right ventricle. 2. Left ventricle has normal size and systolic function. 3. Mitral valve is anatomically normal. There is mild mitral regurgitation noted. 4. Aortic valve is a 3-leaflet valve. There is trace aortic regurgitation noted. 5. Tricuspid valve shows mild tricuspid regurgitation. 6. Right ventricle has normal size and systolic function. 7. Interatrial septum, there is no evidence of [id number] shunt by color-flow Doppler or [id number] shunt by agitated saline contrast study. CONCLUSION: 1. No intracardiac thrombus. 2. Normal left ventricular function. MMODL / IJN: [id number] /
[2020-02-05] MEDS ORDERED: DEXTROSE 5% IN WATER 100 ML with AMIODARONE 150 MG IV ONE (11:30)
[2020-02-05] MEDS ORDERED: AMIODARONE 360 MG in DEXTROSE 5% IN WATER 200 ML IV ONE ×2 (11:40)
[2020-02-05] MEDS: AMIODARONE 300 MG in DEXTROSE 5% IN WATER 250 ML IV SCH ×4 (11:42→20:26)
--- NOTE | 2020-02-06 01:26 | P.PN ---
Subjective Progress Note Date: 02/05/20 Principal diagnosis: A fib with RVR Mr. Arteaga is a 54-year-old male with a past medical history of smoking, alcohol coming in for right foot pain. Patient states that 2 days back he hit the couch and hurt his right foot. Patient was not sure if he passed out because he has been drinking. At the time of admission patient was found to be in atrial fibrillation with rapid ventricular rate and admitted for further management. On 02/03/2020-patient is sitting up in a chair at the bedside appears to be in no acute distress. Patient states that he is anxious about the procedure that he is scheduled for Wednesday which is CINDY and cardioversion. Other than that patient denies having any chest pain or palpitations. No cough or difficulty breathing. No abdominal pain nausea vomiting or diarrhea. No hematuria or dysuria. Patient's vitals have been reviewed he continues to be in atrial fibrillation with rate controlled. On reviewing his labs sodium 132, potassium 4.3 chloride 102 bicarb 27 BUN 15 creatinine 0.66. On 02/04/2020 patient is sitting up in a chair at the bedside appears to be no acute distress. No acute events reported overnight by nursing staff. Patient mentions about being anxious for tomorrow's procedure. He denies any chest pain or palpitations. No cough or difficulty breathing. No abdominal pain nausea vomiting or diarrhea. No dysuria or hematuria. On reviewing the vitals temperature 97.5 heart rate 100s - 140s, respiratory rate 16, blood pressure 100 x 69 and saturating at 97% on room air. On reviewing the patient's labs from this morning white count of 8.4, hemoglobin 16.6, MCV 110, platelets 354, sodium 135, potassium 4.6, chloride 101, bicarb 27, BUN 20, creatinine 0.8. On 02/15/2020 -patient is sitting up in a chair by the bedside. He just got back from his CINDY, he is very upset that he missed his lunch. He denies having any chest pain or palpitations. No cough or difficulty in breathing. No abdominal pain, nausea or vomiting or diarrhea. No dysuria or hematuria. On reviewing his vitals patient is afebrile. Heart rate in 50s to 60s, respiratory rate 16 saturating at 98% on room air with blood pressure of 94 x 67. On reviewing his labs white count of 8.4, hemoglobin 16.6, platelets 354. Sodium 135, potassium 4.6, chloride 101, bicarb 27, BUN 20, creatinine 0.85. Active Medications Hydrocodone Bitart/Acetaminophen (Hydrocodone/Apap 5-325mg 1 Each Tab) 1 each PO Q6HR PRN PRN Reason: Pain Last Admin: 02/01/20 15:59 Dose: 1 each Documented by: Alprazolam (Alprazolam 0.5 Mg Tab) 0.5 mg PO TID PRN PRN Reason: Anxiety Last Admin: 02/04/20 17:33 Dose: 0.5 mg Documented by: Apixaban (Apixaban 5 Mg Tab) 5 mg PO BID [facility] Last Admin: 02/05/20 20:35 Dose: 5 mg Documented by: Famotidine (Famotidine 20 Mg Tab) 20 mg PO Q12HR [facility] Last Admin: 02/05/20 20:35 Dose: 20 mg Documented by: Sodium Chloride (Saline 0.9%) 1,000 mls @ 20 mls/hr IV .Q24H [facility] Amiodarone HCl 300 mg/ (Dextrose/Water) 250 mls @ 25 mls/hr IV .Q10H [facility]; Protocol Stop: 02/06/20 11:39 Last Admin: 02/05/20 20:26 Dose: 0.5 mg/min, 25 mls/hr Documented by: Lorazepam (Lorazepam 2 Mg/Ml Inj) 1 mg IV Q2HR PRN PRN Reason: CIWA 8 or 9 Lorazepam (Lorazepam 2 Mg/Ml Inj) 1 mg IV Q1HR PRN PRN Reason: CIWA 10 to 15 Metoprolol Tartrate (Metoprolol Tartrate 25 Mg Tab) 25 mg PO BID [facility] Last Admin: 02/05/20 20:35 Dose: 25 mg Documented by: Naloxone HCl (Naloxone 0.4 Mg/Ml 1 Ml Vial) 0.2 mg IV Q2M PRN PRN Reason: Opioid Reversal Spironolactone (Spironolactone 25 Mg Tab) 25 mg PO DAILY [facility] Last Admin: 02/05/20 08:32 Dose: 25 mg Documented by: Thiamine HCl (Thiamine 100 Mg Tab) 100 mg PO BID-W/MEALS [facility] Last Admin: 02/05/20 17:02 Dose: 100 mg Documented by: Objective - Vital Signs Vital signs: Vital Signs Temp 97.5 F L 02/04/20 20:00 Pulse 62 02/05/20 17:05 Resp 16 02/05/20 17:05 BP 117/78 02/05/20 17:05 Pulse Ox 97 02/05/20 17:05 Intake & Output 02/04/20 02/05/20 02/05/20 18:59 06:59 18:59 Intake Total 480 740 Output Total 420 600 Balance 480 -420 140 Weight 60.1 kg Intake: IV 100 Intake, IV Titration 200 Amount Amiodarone 360 mg In 100 Dextrose 5% in Water 200 ml @ 1 MG/MIN 33.333 mls/ hr IV .Q6H ONE Rx#: [id number] Dextrose 5% in Water 100 100 ml @ 618 mls/hr IV .Q10M ONE with Amiodarone 150 mg Rx#:[id number] Oral 480 440 Output: Urine 420 600 Other: Voiding Method Toilet Toilet Toilet Urinal Urinal Urinal # Voids 2 1 # Bowel Movements 0 - Exam Physical exam GENERAL: The patient is alert and oriented x3, not in any acute distress. Well developed, well nourished. HEENT: Pupils are round and equally reacting to light. EOMI. No scleral icterus. No conjunctival pallor. CARDIOVASCULAR: Irregularly irregular PULMONARY: Chest is clear to auscultation, no wheezing or crackles. ABDOMEN: Soft, nontender, nondistended, normoactive bowel sounds. No palpable organomegaly. MUSCULOSKELETAL: No joint swelling or deformity. -EXTREMITIES: No cyanosis, clubbing, or pedal edema. Right foot in equalizer boot NEUROLOGICAL: Gross neurological examination did not reveal any focal deficits. - Labs CBC & Chem 7: 02/04/20 07:16 02/04/20 07:16 Assessment and Plan Assessment: ASSESSMENT A. fib with RVR, new onset and present on admission Cardiac pauses with lightheadedness Right foot acute nondisplaced fracture of the third metatarsal metaphyseal bone Nicotine dependence Alcohol abuse, at-risk of alcohol withdrawal Mild alcoholic transaminitis Substance abuse with cannabis PLAN: Continue with Eliquis, hold Cardizem drip due to pauses. CINDY done by Cardiology today . Monitor liver enzymes, continue with CIWA protocol and thiamine. Orthopedic team for his right foot fracture, they recommended equalizer boots and follow-up as an outpatient to repeat foot x-ray in 2-3 weeks Continue with current medication regimen. Monitor lytes and vitals. DVT and GI prophylaxis. Further recommendations depends on the clinical course of the patient
[2020-02-06] MEDS: AMIODARONE 300 MG in DEXTROSE 5% IN WATER 250 ML IV SCH ×6 (06:00→21:54)
[2020-02-06] MEDS: SODIUM CHLORIDE 0.9% 1,000 ML IV SCH ×3 (06:01→10:32)
[2020-02-06] MEDS: THIAMINE 100 MG TAB PO SCH ×2 (06:24→15:51)
[2020-02-06] MEDS: APIXABAN 5 MG TAB PO SCH ×2 (09:40→21:10)
[2020-02-06] MEDS: METOPROLOL TARTRATE 25 MG TAB PO SCH ×2 (09:40→21:10)
[2020-02-06] MEDS: SPIRONOLACTONE 25 MG TAB PO SCH (09:40)
[2020-02-06] MEDS: FAMOTIDINE 20 MG TAB PO SCH ×2 (09:40→21:10)
--- NOTE | 2020-02-06 09:47 | P.PN ---
Subjective This is a pleasant 54 years old male with no significant past medical history, he smokes cigarettes every day about 1 pack per day, drinks half pint of liquor every day and smokes marijuana. He presents because of right foot pain, patient states that 2 days ago he was drinking at his couch and He was getting up to go to sleep when he tripped and fell and he hurt his right foot, patient is not sure if he passed out or no because he has been drinking. However he denies any chest pain or dyspnea or diarrhea or vomiting or other complaints, patient has been complaining of from right foot pain so he went to see his PCP Dr. Cotter me when he was noticed to have high heart rate about 160 and he was referred to emergency room Asthma about 1 pack per day, patient is counseled and he wants to quit but he declined a nicotine patch. He drinks about half pint of liquor every day, and uses marijuana with no other illicit drugs He denies depression or suicidal ideation Abdomen unremarkable CBC, INR, BMP. Liver enzymes slightly elevated with AST 78 and ALT 81, troponin 3 are negative with less than 0.012. EKG showing atrial fibrillation with RVR at 183. TSH is normal at 2.0 Right foot x-ray showing nondisplaced proximal third metatarsal metaphyseal fracture Chest x-ray: No acute process., COPD The emergency room patient was started on heparin and Cardizem drips 02/02/2020 Is currently awake with no chest pain or dyspnea. Overnight the patient he had a few pauses on the monitor during which he felt some lightheadedness. Cardizem was stopped and continued with the Eliquis His heart rate is going up to 133, currently is 96, continue with monitoring telemetry and production planning manager will evaluate the patient Echocardiogram showed ejection fraction of 30-35% with anteroseptal and septal hypokinesia, I discussed the case with cardiology team pause well. His CIWA score today is 0-1 Monitor potassium and magnesium 02/06/2020 Patient is clinically doing well, he is awake alert, denies chest dyspnea, no right foot issue and with equalizer boot are on however patient remains on amiodarone drip and oral Eliquis for his A. fib and RVR, however is still on a me during drip as he might need cardioversion. He status post CINDY yesterday which shows no intracardiac thrombus. We will await further cardiology recommendation whether to do cardioversion or not the day Objective - Vital Signs Vital signs: Vital Signs Temp 97.8 F 02/06/20 04:00 Pulse 59 L 02/06/20 04:00 Resp 18 02/06/20 04:00 BP 101/69 02/06/20 04:00 Pulse Ox 97 02/06/20 04:00 Intake & Output 02/05/20 02/06/20 02/06/20 18:59 06:59 18:59 Intake Total 740 240 Output Total 600 400 Balance 140 -160 Weight 60.2 kg Intake: IV 100 Intake, IV Titration 200 Amount Amiodarone 360 mg In 100 Dextrose 5% in Water 200 ml @ 1 MG/MIN 33.333 mls/ hr IV .Q6H ONE Rx#: [id number] Dextrose 5% in Water 100 100 ml @ 618 mls/hr IV .Q10M ONE with Amiodarone 150 mg Rx#:[id number] Oral 440 240 Output: Urine 600 400 Other: Voiding Method Toilet Toilet Urinal Urinal # Voids 1 # Bowel Movements 0 - Exam GENERAL: The patient is alert and oriented x3, not in any acute distress. Well developed, well nourished. HEENT: Pupils are round and equally reacting to light. EOMI. No scleral icterus. No conjunctival pallor. Normocephalic, atraumatic. No pharyngeal erythema. No thyromegaly. CARDIOVASCULAR: S1 and S2 present. No murmurs, rubs, or gallops. PULMONARY: Chest is clear to auscultation, no wheezing or crackles. ABDOMEN: Soft, nontender, nondistended, normoactive bowel sounds. No palpable organomegaly. MUSCULOSKELETAL: No joint swelling or deformity. -EXTREMITIES: No cyanosis, clubbing, or pedal edema. Right foot is in equalizer both NEUROLOGICAL: Gross neurological examination did not reveal any focal deficits. SKIN: No rashes. no petechiae. - Labs CBC & Chem 7: 02/04/20 07:16 02/04/20 07:16 Assessment and Plan Assessment: A. fib with RVR, new onset and present on admission Cardiac pauses with lightheadedness Right foot acute nondisplaced fracture of the third metatarsal metaphyseal bone Nicotine dependence Alcohol abuse, at-risk of alcohol withdrawal Mild alcoholic transaminitis Substance abuse with cannabis Plan: This is a pleasant 54 years old male who presents with a new onset A. fib and right foot fracture. Continue with Eliquis, hold Cardizem drip due to pauses. Follow-up with production planning manager for further recommendation for monitor the patient closely as well. Monitor liver enzymes, continue with CIWA protocol and thiamine. orthopedic team for his right foot fracture, they recommended equalizer boots and follow-up as an outpatient to repeat foot x-ray in 2-3 weeks Labs and medication were reviewed.. Continue same treatment. Continue with sy mptomatic treatment. Resume home medication. Monitor lytes and vitals. DVT and GI prophylaxis. Further recommendations depends on the clinical course of the patient DVT prophylaxis: Eliquis GI Prophylaxis: Pepcid PT/OT: Pending
--- NOTE | 2020-02-06 11:41 | P.PN ---
Subjective Progress Note Date: 02/06/20 This is a pleasant 54-year-old gentleman with past medical history for chronic nicotine dependence, daily alcohol use of at least a pint of whiskey per day. No prior history of coronary artery disease according to the patient. Cardiology was initially requested to see the patient in consultation yesterday for atrial fibrillation with a rapid ventricular response. Patient also incurred a fall prior to coming to the hospital, the imaging revealed that he had a third metatarsal fracture and currently has a boot in place to that foot. The patient was initiated on IV Cardizem as well as beta toney yesterday, he was noted on the monitor to have pauses of 45 seconds in duration. At the time of the pauses patient states that he felt very dizzy, he was seeing stars. The IV Cardizem and beta toney were discontinued yesterday. This morning the patient remains in atrial fibrillation, rate is in the 1:30 to 140 range. He also had an echocardiogram with Doppler study performedwhich revealed an ejection fraction of 30-35%, anterior septal hypokinesia noted.the patient was seen and examined this morning, overall he feels well, no symptoms of dizziness this morning, his breathing is stable and he denies any palpitations. The patient did state this morning however that he definitely will quit drinking alcohol, he is quite concerned about his arrhythmia and decreased heart muscle function. The patient was initiated yesterday on Eliquis, we will check to make sure that the patient has adequate coverage for this. We will also start him on some metoprolol tartrate today 25 mg one tablet by mouth twice a day and continue to monitor the patient. 02/06/2020 Patient was seen and examined this morning. He continues to be in atrial fibrillation, his rate is under better control. In the 70s this morning. He continues at this time to be on IV amiodarone and 0.5. His blood pressure 117/70, 97% on room air. White blood cell count 8.4, hemoglobin 16.6, platelet count 354.sodium 135, potassium 4.6, BUN 20, creatinine 0.8. Objective - Vital Signs Vital signs: Vital Signs Temp 98.1 F 02/06/20 08:00 Pulse 79 02/06/20 08:00 Resp 15 02/06/20 08:00 BP 117/77 02/06/20 08:00 Pulse Ox 97 02/06/20 08:00 Intake & Output 02/05/20 02/06/20 02/06/20 18:59 06:59 18:59 Intake Total 740 240 Output Total 600 400 Balance 140 -160 Weight 60.2 kg Intake: IV 100 Intake, IV Titration 200 Amount Amiodarone 360 mg In 100 Dextrose 5% in Water 200 ml @ 1 MG/MIN 33.333 mls/ hr IV .Q6H ONE Rx#: [id number] Dextrose 5% in Water 100 100 ml @ 618 mls/hr IV .Q10M ONE with Amiodarone 150 mg Rx#:[id number] Oral 440 240 Output: Urine 600 400 Other: Voiding Method Toilet Toilet Toilet Urinal Urinal Urinal # Voids 1 # Bowel Movements 0 - Exam PHYSICAL EXAMINATION: GENERAL:54-year-old gentleman in no acute distress at the time of my examination HEENT: Head is atraumatic, normocephalic. Pupils equal, round. Sclera anicteric. Conjunctiva are clear. Mucous membranes of the mouth are moist. Neck is supple. There is no elevated jugular venous pressure.no carotid bruit is heard. HEART EXAMINATION: [Heart S1, S2 irregularly irregular. No murmur or gallop heard.] CHEST EXAMINATION:[ Lungs are clear to auscultation and precussion. No chest wall tenderness is noted on palpation or with deep breathing.] ABDOMEN: [ Soft, nontender. Bowel sounds are heard. No organomegaly noted]. EXTREMITIES:[ 2+ peripheral pulses with no evidence of peripheral edema and no calf tenderness noted]. The patient does have an orthopedic boot in place to the right foot NEUROLOGIC [patient is awake, alert and oriented 3.] . - Labs CBC & Chem 7: 02/04/20 07:16 02/04/20 07:16 Assessment and Plan Plan: assessment and plan #1 persistent atrial fibrillation with rapid ventricular response,on Eliquis for anticoagulation #2 episodes of 45 second pauses, while on IV Cardizem yesterday, IV Cardizem has been discontinued #3 cardiomyopathy, likely nonischemic, could be related to EtOH use as well as A. fib with RVR #4 chronic nicotine dependence #5 daily alcohol intake of at least a pint per day Plan From cardiology's perspective, we will continue the IV amiodarone at 0.5, patient will be scheduled to undergo elective cardioversion tomorrow by Dr. Mulligan. DNP note has been reviewed, I agree with a documented findings and plan of care. Patient was seen and examined.
[2020-02-07] MEDS: AMIODARONE 300 MG in DEXTROSE 5% IN WATER 250 ML IV SCH ×6 (02:28→19:11)
[2020-02-07] MEDS: THIAMINE 100 MG TAB PO SCH ×2 (06:29→16:55)
[2020-02-07] MEDS: METOPROLOL TARTRATE 25 MG TAB PO SCH ×2 (09:39→21:19)
[2020-02-07] MEDS: APIXABAN 5 MG TAB PO SCH ×2 (09:39→21:19)
[2020-02-07] MEDS: FAMOTIDINE 20 MG TAB PO SCH ×2 (09:39→21:19)
[2020-02-07] MEDS: SPIRONOLACTONE 25 MG TAB PO SCH (09:39)
[2020-02-07] MEDS: SODIUM CHLORIDE 0.9% 1,000 ML IV SCH (10:30)
--- NOTE | 2020-02-07 11:55 | P.PN ---
Subjective Progress Note Date: 02/07/20 This is a pleasant 54-year-old gentleman with past medical history for chronic nicotine dependence, daily alcohol use of at least a pint of whiskey per day. No prior history of coronary artery disease according to the patient. Cardiology was initially requested to see the patient in consultation yesterday for atrial fibrillation with a rapid ventricular response. Patient also incurred a fall prior to coming to the hospital, the imaging revealed that he had a third metatarsal fracture and currently has a boot in place to that foot. The patient was initiated on IV Cardizem as well as beta toney yesterday, he was noted on the monitor to have pauses of 45 seconds in duration. At the time of the pauses patient states that he felt very dizzy, he was seeing stars. The IV Cardizem and beta toney were discontinued yesterday. This morning the patient remains in atrial fibrillation, rate is in the 1:30 to 140 range. He also had an echocardiogram with Doppler study performedwhich revealed an ejection fraction of 30-35%, anterior septal hypokinesia noted.the patient was seen and examined this morning, overall he feels well, no symptoms of dizziness this morning, his breathing is stable and he denies any palpitations. The patient did state this morning however that he definitely will quit drinking alcohol, he is quite concerned about his arrhythmia and decreased heart muscle function. The patient was initiated yesterday on Eliquis, we will check to make sure that the patient has adequate coverage for this. We will also start him on some metoprolol tartrate today 25 mg one tablet by mouth twice a day and continue to monitor the patient. 02/06/2020 Patient was seen and examined this morning. He continues to be in atrial fibrillation, his rate is under better control. In the 70s this morning. He continues at this time to be on IV amiodarone and 0.5. His blood pressure 117/70, 97% on room air. White blood cell count 8.4, hemoglobin 16.6, platelet count 354.sodium 135, potassium 4.6, BUN 20, creatinine 0.8. 02/17/2020 Patient seen and examined this morning, doing well, continues to be in atrial fibrillation, heart rate under adequate control. He is scheduled tomorrow to undergo elective cardioversion by Dr. Mulligan. Blood pressure 112/70 with a heart rate of 70, 98% on room air. White blood cell count 8.4, hemoglobin 16.6, platelet count 354. Sodium 135, potassium 4.6, BUN 20, creatinine 0.8. Objective - Vital Signs Vital signs: Vital Signs Temp 97.7 F 02/07/20 11:24 Pulse 70 02/07/20 11:24 Resp 18 02/07/20 11:24 BP 112/77 02/07/20 11:24 Pulse Ox 98 02/07/20 11:24 Intake & Output 02/06/20 02/07/20 02/07/20 18:59 06:59 18:59 Intake Total 720 320 240 Output Total 400 360 360 Balance 320 -40 -120 Weight 60.2 kg Intake: IV 70 .9 @ 10 70 Intake, IV Titration 250 Amount Amiodarone 300 mg In 250 Dextrose 5% in Water 250 ml @ 0.5 MG/MIN 25 mls/hr IV .Q10H [facility] Rx#: [id number] Oral 720 240 Output: Urine 400 360 360 Other: Voiding Method Toilet Toilet Urinal Urinal # Voids 3 1 1 # Bowel Movements 0 - Exam PHYSICAL EXAMINATION: GENERAL:54-year-old gentleman in no acute distress at the time of my examination HEENT: Head is atraumatic, normocephalic. Pupils equal, round. Sclera an icteric. Conjunctiva are clear. Mucous membranes of the mouth are moist. Neck is supple. There is no elevated jugular venous pressure.no carotid bruit is heard. HEART EXAMINATION: [Heart S1, S2 irregularly irregular. No murmur or gallop heard.] CHEST EXAMINATION:[ Lungs are clear to auscultation and precussion. No chest wall tenderness is noted on palpation or with deep breathing.] ABDOMEN: [ Soft, nontender. Bowel sounds are heard. No organomegaly noted]. EXTREMITIES:[ 2+ peripheral pulses with no evidence of peripheral edema and no calf tenderness noted]. The patient does have an orthopedic boot in place to the right foot NEUROLOGIC [patient is awake, alert and oriented 3.] . - Labs CBC & Chem 7: 02/04/20 07:16 02/04/20 07:16 Assessment and Plan Plan: assessment and plan #1 persistent atrial fibrillation with rapid ventricular response,on Eliquis for anticoagulation #2 episodes of 45 second pauses, while on IV Cardizem yesterday, IV Cardizem has been discontinued #3 cardiomyopathy, likely nonischemic, could be related to EtOH use as well as A. fib with RVR #4 chronic nicotine dependence #5 daily alcohol intake of at least a pint per day Plan From cardiology's perspective, we will continue the IV amiodarone at 0.5, patient will be scheduled to undergo elective cardioversion tomorrow by Dr. Mulligan. DNP note has been reviewed, I agree with a documented findings and plan of care. Patient was seen and examined.
--- NOTE | 2020-02-07 18:22 | P.PN ---
Subjective This is a pleasant 54 years old male with no significant past medical history, he smokes cigarettes every day about 1 pack per day, drinks half pint of liquor every day and smokes marijuana. He presents because of right foot pain, patient states that 2 days ago he was drinking at his couch and He was getting up to go to sleep when he tripped and fell and he hurt his right foot, patient is not sure if he passed out or no because he has been drinking. However he denies any chest pain or dyspnea or diarrhea or vomiting or other complaints, patient has been complaining of from right foot pain so he went to see his PCP Dr. Cotter me when he was noticed to have high heart rate about 160 and he was referred to emergency room Asthma about 1 pack per day, patient is counseled and he wants to quit but he declined a nicotine patch. He drinks about half pint of liquor every day, and uses marijuana with no other illicit drugs He denies depression or suicidal ideation Abdomen unremarkable CBC, INR, BMP. Liver enzymes slightly elevated with AST 78 and ALT 81, troponin 3 are negative with less than 0.012. EKG showing atrial fibrillation with RVR at 183. TSH is normal at 2.0 Right foot x-ray showing nondisplaced proximal third metatarsal metaphyseal fracture Chest x-ray: No acute process., COPD The emergency room patient was started on heparin and Cardizem drips 02/02/2020 Is currently awake with no chest pain or dyspnea. Overnight the patient he had a few pauses on the monitor during which he felt some lightheadedness. Cardizem was stopped and continued with the Eliquis His heart rate is going up to 133, currently is 96, continue with monitoring telemetry and floriculture teacher will evaluate the patient Echocardiogram showed ejection fraction of 30-35% with anteroseptal and septal hypokinesia, I discussed the case with cardiology team pause well. His CIWA score today is 0-1 Monitor potassium and magnesium 02/06/2020 Patient is clinically doing well, he is awake alert, denies chest dyspnea, no right foot issue and with equalizer boot are on however patient remains on amiodarone drip and oral Eliquis for his A. fib and RVR, however is still on a me during drip as he might need cardioversion. He status post CINDY yesterday which shows no intracardiac thrombus. We will await further cardiology recommendation whether to do cardioversion or not the day 02/07/2020 Patient is clinically stable, patient is going for cardioversion by floriculture teacher tomorrow morning Currently patient remains on amiodarone drip by floriculture teacher recommendation Objective - Vital Signs Vital signs: Vital Signs Temp 97.9 F 02/07/20 12:00 Pulse 77 02/07/20 12:00 Resp 15 02/07/20 12:00 BP 121/84 02/07/20 12:00 Pulse Ox 97 02/07/20 12:00 Intake & Output 02/06/20 02/07/20 02/07/20 18:59 06:59 18:59 Intake Total 720 320 240 Output Total 400 360 360 Balance 320 -40 -120 Weight 60.2 kg Intake: IV 70 .9 @ 10 70 Intake, IV Titration 250 Amount Amiodarone 300 mg In 250 Dextrose 5% in Water 250 ml @ 0.5 MG/MIN 25 mls/hr IV .Q10H [facility] Rx#: [id number] Oral 720 240 Output: Urine 400 360 360 Other: Voiding Method Toilet Toilet Urinal Urinal # Voids 3 1 3 # Bowel Movements 0 - Exam GENERAL: The patient is alert and oriented x3, not in any acute distress. Well developed, well nourished. HEENT: Pupils are round and equally reacting to light. EOMI. No scleral icterus. No conjunctival pallor. Normocephalic, atraumatic. No pharyngeal erythema. No thyromegaly. CARDIOVASCULAR: S1 and S2 present. No murmurs, rubs, or gallops. PULMONARY: Chest is clear to auscultation, no wheezing or crackles. ABDOMEN: Soft, nontender, nondistended, normoactive bowel sounds. No palpable organomegaly. MUSCULOSKELETAL: No joint swelling or deformity. -EXTREMITIES: No cyanosis, clubbing, or pedal edema. Right foot is in equalizer both NEUROLOGICAL: Gross neurological examination did not reveal any focal deficits. SKIN: No rashes. no petechiae. - Labs CBC & Chem 7: 02/04/20 07:16 02/04/20 07:16 Assessment and Plan Assessment: A. fib with RVR, new onset and present on admission Cardiac pauses with lightheadedness Right foot acute nondisplaced fracture of the third metatarsal metaphyseal bone Nicotine dependence Alcohol abuse, at-risk of alcohol withdrawal Mild alcoholic transaminitis Substance abuse with cannabis Plan: This is a pleasant 54 years old male who presents with a new onset A. fib and right foot fracture. Continue with Eliquis, hold Cardizem drip due to pauses. Cardioversion tomorrow with Dr. Noel. Monitor liver enzymes, continue with CIWA protocol and thiamine. orthopedic team for his right foot fracture, they recommended equalizer boots and follow-up as an outpatient to repeat foot x-ray in 2-3 weeks Labs and medication were reviewed.. Continue same treatment. Continue with symptomatic treatment. Resume home medication. Monitor lytes and vitals. DVT and GI prophylaxis. Further recommendations depends on the clinical course of the patient DVT prophylaxis: Eliquis GI Prophylaxis: Pepcid PT/OT: Pending
[2020-02-08] MEDS: APIXABAN 5 MG TAB PO SCH ×2 (08:36→20:48)
[2020-02-08] MEDS: AMIODARONE 300 MG in DEXTROSE 5% IN WATER 250 ML IV SCH ×4 (08:36→23:14)
[2020-02-08] MEDS: METOPROLOL TARTRATE 25 MG TAB PO SCH ×2 (08:37→20:48)
[2020-02-08] MEDS: FAMOTIDINE 20 MG TAB PO SCH ×2 (08:37→20:48)
[2020-02-08] MEDS: SPIRONOLACTONE 25 MG TAB PO SCH (08:37)
[2020-02-08] MEDS ORDERED: IV FLUID CONTINUATION 500 ML IV ONE (11:46)
[2020-02-08] MEDS ORDERED: PROPOFOL 10 MG/ML 20 ML VIAL IV ONE (11:46)
--- NOTE | 2020-02-08 12:37 | P.PN ---
Subjective This is a pleasant 54 years old male with no significant past medical history, he smokes cigarettes every day about 1 pack per day, drinks half pint of liquor every day and smokes marijuana. He presents because of right foot pain, patient states that 2 days ago he was drinking at his couch and He was getting up to go to sleep when he tripped and fell and he hurt his right foot, patient is not sure if he passed out or no because he has been drinking. However he denies any chest pain or dyspnea or diarrhea or vomiting or other complaints, patient has been complaining of from right foot pain so he went to see his PCP Dr. Cotter me when he was noticed to have high heart rate about 160 and he was referred to emergency room Asthma about 1 pack per day, patient is counseled and he wants to quit but he declined a nicotine patch. He drinks about half pint of liquor every day, and uses marijuana with no other illicit drugs He denies depression or suicidal ideation Abdomen unremarkable CBC, INR, BMP. Liver enzymes slightly elevated with AST 78 and ALT 81, troponin 3 are negative with less than 0.012. EKG showing atrial fibrillation with RVR at 183. TSH is normal at 2.0 Right foot x-ray showing nondisplaced proximal third metatarsal metaphyseal fracture Chest x-ray: No acute process., COPD The emergency room patient was started on heparin and Cardizem drips 02/02/2020 Is currently awake with no chest pain or dyspnea. Overnight the patient he had a few pauses on the monitor during which he felt some lightheadedness. Cardizem was stopped and continued with the Eliquis His heart rate is going up to 133, currently is 96, continue with monitoring telemetry and travel registered nurse icu will evaluate the patient Echocardiogram showed ejection fraction of 30-35% with anteroseptal and septal hypokinesia, I discussed the case with cardiology team pause well. His CIWA score today is 0-1 Monitor potassium and magnesium 02/06/2020 Patient is clinically doing well, he is awake alert, denies chest dyspnea, no right foot issue and with equalizer boot are on however patient remains on amiodarone drip and oral Eliquis for his A. fib and RVR, however is still on a me during drip as he might need cardioversion. He status post CINDY yesterday which shows no intracardiac thrombus. We will await further cardiology recommendation whether to do cardioversion or not the day 02/07/2020 Patient is clinically stable, patient is going for cardioversion by travel registered nurse icu tomorrow morning Currently patient remains on amiodarone drip by travel registered nurse icu recommendation 02/08/2020 Patient is lying in bed comfortable with no chest pain or dyspnea. No other complaints. He is hemodynamically stable Patient is scheduled for cardioversion by cardiology team sometime today. He remains on amiodarone drip. We will keep following up Objective - Vital Signs Vital signs: Vital Signs Temp 98.2 F 02/08/20 11:25 Pulse 69 02/08/20 11:25 Resp 18 02/08/20 11:25 BP 113/79 02/08/20 11:25 Pulse Ox 98 02/08/20 11:25 Intake & Output 02/07/20 02/08/20 02/08/20 18:59 06:59 18:59 Intake Total 720 485.833 25 Output Total 360 Balance 360 485.833 25 Weight 60.1 kg Intake: IV 25 Intake, IV Titration 485.833 Amount Amiodarone 300 mg In 485.833 Dextrose 5% in Water 250 ml @ 0.5 MG/MIN 25 mls/hr IV .Q10H [facility] Rx#: [id number] Oral 720 0 Output: Urine 360 Other: Voiding Method Toilet Toilet Toilet Urinal Urinal Urinal # Voids 3 1 1 # Bowel Movements 0 - Exam GENERAL: The patient is alert and oriented x3, not in any acute distress. Well developed, well nourished. HEENT: Pupils are round and equally reacting to light. EOMI. No scleral icterus. No conjunctival pallor. Normocephalic, atraumatic. No pharyngeal erythema. No thyromegaly. CARDIOVASCULAR: S1 and S2 present. No murmurs, rubs, or gallops. PULMONARY: Chest is clear to auscultation, no wheezing or crackles. ABDOMEN: Soft, nontender, nondistended, normoactive bowel sounds. No palpable organomegaly. MUSCULOSKELETAL: No joint swelling or deformity. -EXTREMITIES: No cyanosis, clubbing, or pedal edema. Right foot is in equalizer both NEUROLOGICAL: Gross neurological examination did not reveal any focal deficits. SKIN: No rashes. no petechiae. - Labs CBC & Chem 7: 02/04/20 07:16 02/04/20 07:16 Assessment and Plan Assessment: A. fib with RVR, new onset and present on admission Cardiac pauses with lightheadedness Right foot acute nondisplaced fracture of the third metatarsal metaphyseal bone Nicotine dependence Alcohol abuse, at-risk of alcohol withdrawal Mild alcoholic transaminitis Substance abuse with cannabis Plan: This is a pleasant 54 years old male who presents with a new onset A. fib and right foot fracture. Continue with Eliquis, hold Cardizem drip due to pauses. Cardioversion tomorrow with Dr. Noel. Monitor liver enzymes, continue with CIWA protocol and thiamine. orthopedic team for his right foot fracture, they recommended equalizer boots and follow-up as an outpatient to repeat foot x-ray in 2-3 weeks Labs and medication were reviewed.. Continue same treatment. Continue with symptomatic treatment. Resume home medication. Monitor lytes and vitals. DVT and GI prophylaxis. Further recommendations depends on the clinical course of the patient DVT prophylaxis: Eliquis GI Prophylaxis: Pepcid PT/OT: Pending
--- NOTE | 2020-02-08 12:44 | P.EPPROC ---
- EP Procedure Note Electrophysiology Procedure Note: Diagnosis A. fib with RVR with very difficult rate control on account of tachybradycardia syndrome Transient cardio myopathy during A. fib with RVR On ELIQUIS CINDY performed a few days but did not show any left atrial appendage thrombus Procedure Electrical cardioversion for atrial fibrillation At 360 J biphasic shock in the AP configuration converted into sinus rhythm without any significant postconversion pause He was in sinus rhythm with PACs Plan Finish IV amiodarone drip and switch to by mouth amiodarone 200 mg twice daily and metoprolol succinate 25 mg once daily If he is stable he can go home tomorrow He must be on anticoagulation ELIQUIS 5 mg twice daily and nurse practitioner Follow-up Dr. Mulligan in 1 week
--- NOTE | 2020-02-08 12:46 | P.PRLE ---
RE: Luis Arteaga Dear Dr. Phi melo was admitted to the hospital with A. fib with RVR. However on AV richard blocking drugs he had severe bradycardia Therefore he underwent CINDY, was started on IV amiodarone and today I cardioverted into sinus rhythm It is quite likely that we will discharge him tomorrow on amiodarone 200 mg twice daily and low-dose beta blockers I will see him again in about 1-2 weeks Thank you for entrusting me with the care of the patient Warm regards Sincerely Matt Mulligan
[2020-02-08] MEDS: SODIUM CHLORIDE 0.9% 1,000 ML IV SCH (16:26)
[2020-02-08] MEDS: THIAMINE 100 MG TAB PO SCH (16:30)
[2020-02-09 00:33] VITALS: RESP 18
[2020-02-09] MEDS: THIAMINE 100 MG TAB PO SCH (06:33)
[2020-02-09] MEDS: METOPROLOL TARTRATE 25 MG TAB PO SCH (08:10)
[2020-02-09] MEDS: SPIRONOLACTONE 25 MG TAB PO SCH (08:10)
[2020-02-09] MEDS: FAMOTIDINE 20 MG TAB PO SCH (08:11)
[2020-02-09] MEDS: APIXABAN 5 MG TAB PO SCH (08:11)
[2020-02-09] MEDS ORDERED: AMIODARONE 200 MG TAB PO SCH (09:00)
[2020-02-09 10:03] VITALS: TEMP 97.8
[2020-02-09] MEDS: SODIUM CHLORIDE 0.9% 1,000 ML IV SCH (10:10)
--- NOTE | 2020-02-09 13:42 | P.PN ---
Subjective Progress Note Date: 02/09/20 HISTORY OF PRESENT ILLNESS: Patient examined this morning at the bedside. He is status post cardioversion with Dr. Mulligan. He remains in sinus rhythm. He denies chest pain or pressure. Denies shortness of breath. He is hoping to be discharged home today. PHYSICAL EXAM: VITAL SIGNS: Reviewed. GENERAL: Well-developed in no acute distress. NECK: Supple. No JVD or thyromegaly LUNGS: Respirations even and unlabored. Lungs essentially clear to auscultation bilaterally. HEART: Regular rate and rhythm. S1 and S2 heard. EXTREMITIES: Normal range of motion. No clubbing or cyanosis. Peripheral pulses intact. No lower extremity edema ASSESSMENT: Persistent atrial fibrillation, status post cardioversion Cardiomyopathy, likely nonischemic, may be secondary to EtOH use Chronic nicotine dependence Daily alcohol use of at least 1 pint per day PLAN: Continue Eliquis for anticoagulation Continue low-dose beta blockers Continue amiodarone 200 mg twice a day Patient may be discharged home today from a cardiac perspective. He is to follow up outpatient with Dr. Mulligan Nurse practitioner note has been reviewed by physician. Signing provider agrees with the documented findings, assessment, and plan of care. Objective - Vital Signs Vital signs: Vital Signs Temp 97.8 F 02/09/20 08:00 Pulse 68 02/09/20 08:00 Resp 18 02/09/20 08:00 BP 116/67 02/09/20 08:00 Pulse Ox 98 02/09/20 08:00 Intake & Output 02/08/20 02/09/20 02/09/20 18:59 06:59 18:59 Intake Total 265 Balance 265 Weight 60.7 kg Intake: IV 25 Oral 240 Other: Voiding Method Toilet Toilet Toilet Urinal Urinal Urinal # Voids 3 1 - Labs CBC & Chem 7: 02/04/20 07:16 02/04/20 07:16
[2020-02-09 14:17] VITALS: BP 94/48; PULSE 52
--- NOTE | 2020-02-10 06:31 | P.DS ---
Providers Date of admission: 01/31/20 16:16 Attending physician: Nik Medrano Consults: 01/31/20 16:17 Consult Physician Urgent Consulting Provider: [facility] Consult Reason/Comments: afib with rvr Do you want consulting provider notified?: Yes Primary care physician: [place] Hospital Course: Diagnoses: A. fib with RVR, new onset and present on admission, status post cardioversion Cardiac pauses with lightheadedness, improved with treatment Right foot acute nondisplaced fracture of the third metatarsal metaphyseal bone, orthopedic team recommended equalizer boot and follow-up as an outpatient Nicotine dependence Alcohol abuse, at-risk of alcohol withdrawal Mild alcoholic transaminitis Substance abuse with cannabis Hospital course: This is a pleasant 54 years old male with no significant past medical history, he smokes cigarettes every day about 1 pack per day, drinks half pint of liquor every day and smokes marijuana. He presents because of right foot pain, patient states that 2 days ago he was drinking at his couch and He was getting up to go to sleep when he tripped and fell and he hurt his right foot, Right foot x-ray showing nondisplaced proximal third metatarsal metaphyseal fracture. Patient evaluated by orthopedic team who recommended equalizer boot which is provided to the patient while he is in hospital with a recommendation to follow up as an o utpatient for repeat x-ray in 2-3 weeks, appointment made for the patient upon discharge and he agrees with it Also patient was diagnosed with A. fib and RVR and had some cardiac pauses on telemetry. Patient was treated with amiodarone drip and oral Eliquis, CINDY shows no intracardiac thrombus. And Dr. Noel recommended cardioversion which was done yesterday and patient tolerated the procedure well.On discharge was provided with prescription for metoprolol, spironolactone and amiodarone as well as Eliquis per cardiology team. Patient has been asymptomatic on the day of discharge with no chest pain or dyspnea, no abdominal pain, no change in urine bowel habits. No fever Patient was cleared for discharge by cardiology team Problems and management plan were discussed with the patient and he verbalized understanding and acceptance Patient was found stable and can be discharged home however he needs follow-up as an outpatient. Patient was instructed to follow up with PCP within one week and patient agrees Patient agrees with the appointments made for him with Dr. Yip on 02/14, Dr. Schmitt orthopedic on 02/[address] Noel on 02/14 and states he follow-up Physical exam Gen: patient is a AAOx3, no distress CVS: S1-S2, RRR, no murmur Lungs: B/L CTA, no wheezing Abdomen: soft, no distention, no tenderness, positive bowel sounds Extremity: no leg edema or induration Time spent more than 35 minutes Patient Condition at Discharge: Serious Plan - Discharge Summary Discharge Rx Participant: Yes New Discharge Prescriptions: New Apixaban [Eliquis] 5 mg PO BID #60 tab Amiodarone [Cordarone] 200 mg PO BID #60 tab Metoprolol Tartrate [Lopressor] 25 mg PO BID #60 tab Spironolactone [Aldactone] 25 mg PO DAILY #30 tab Thiamine [Vitamin B-1] 100 mg PO DAILY #30 tab Continue Multivitamins, Thera [Multivitamin (formulary)] 1 tab PO DAILY Discontinued Potassium Gluconate 99 mg PO DAILY Ascorbic Acid [Vitamin C] 500 mg PO DAILY Chilcoot-3 Fatty Acids/Fish Oil [Fish Oil 1,000 mg Softgel] 1 cap PO DAILY Ibuprofen [Motrin] 800 mg PO Q8H PRN PRN Reason: Pain Discharge Medication List Multivitamins, Thera [Multivitamin (formulary)] 1 tab PO DAILY 01/31/20 [History] Apixaban [Eliquis] 5 mg PO BID #60 tab 02/06/20 [Rx] Amiodarone [Cordarone] 200 mg PO BID #60 tab 02/09/20 [Rx] Metoprolol Tartrate [Lopressor] 25 mg PO BID #60 tab 02/09/20 [Rx] Spironolactone [Aldactone] 25 mg PO DAILY #30 tab 02/09/20 [Rx] Thiamine [Vitamin B-1] 100 mg PO DAILY #30 tab 02/09/20 [Rx] Follow up Appointment(s)/Referral(s): Matt Mulligan MD [STAFF PHYSICIAN] - 02/15/20 2:30 pm (Follow-up with Dr. Mulligan/Mini Torres/Leatha Valverde within 1-2 weeks) Tobias Schmitt MD [STAFF PHYSICIAN] - 02/23/20 9:15 am (you will need repeat x- ray RIGHT foot) Melchor Yip DO [Primary Care Provider] - 02/15/20 8:20 am Patient Instructions/Handouts: A-fib (Atrial Fibrillation) (DC), Cigarette Smoking and Your Health (GEN), Abuse of Alcohol (DC), Safe Use of Anticoagulants (DC), Cardioversion (DC) Activity/Diet/Wound Care/Special Instructions: Eliquis $60 copay-Patient is aware and ok with cost. Equalizer boot right foot. May bear weight in boot with walker right lower extremity. Discharge Disposition: HOME SELF-CARE
--- NOTE | 2020-02-12 00:36 | CDI ---
Documentation Clarification Form Date: 02/12/2020 From: Augusto Sheth Phone: If you have a question about this query, please contact Tammie Geronimo, [employer] Instructor at [phone] between 8am and 5pm. Admit Date: 01/31/2020 Discharge Date: 02/09/2020 Patient Name: Luis Arteaga Visit Number: [id number] ATTENTION: The Clinical Documentation Specialists (CDI) and [facility] Coding Staff appreciate your assistance in clarifying documentation. Please respond to the clarification below the line at the bottom and electronically sign. The CDI & [facility] Coding staff will review the response and follow-up if needed. Please note: Queries are made part of the Legal Health Record. If you have any questions, please contact the author of this message via ITS. Dear Dr Beltrán, [place] MD., Patient has been described as BMI 18.7 History/Risk Factors: Atrial fibrillation, cardiomyopathy, alcohol abuse Patients weight is :60.7KG Patients height is :5.11ft Calculated BMI is 18.7kg/m2 Treatments: Conservative treatment In order to capture the severity of condition associated with patient BMI of 18.7, a clinical diagnosis needs to be documented by the physician. Please clarify: Cachexia Underweight Malnutrition, (further specify severity and type) Other Unable to determine no Cachexia MTDD
== END 2020-02-09 15:30 | disposition home or self-care (01) | DRG 310 ==
LOC: EC 13:00 → 3SCARD 16:16
PROVIDERS: ADMIT Internal Medicine; ATTEND Internal Medicine
PROC: 5A2204Z Restoration of Cardiac Rhythm, Single (ICD-10-PCS; principal; 2020-02-08 11:30)
DX: I48.19 Other persistent atrial fibrillation (principal); I49.5 Sick sinus syndrome; F17.200 Nicotine dependence, unspecified, uncomplicated; S92.334A Nondisplaced fracture of third metatarsal bone, right foot, initial encounter for closed fracture; W08.XXXA Fall from other furniture, initial encounter; J44.9 Chronic obstructive pulmonary disease, unspecified; F41.9 Anxiety disorder, unspecified; F10.10 Alcohol abuse, uncomplicated; I08.3 Combined rheumatic disorders of mitral, aortic and tricuspid valves; F12.90 Cannabis use, unspecified, uncomplicated; R74.01 Elevation of levels of liver transaminase levels; I42.6 Alcoholic cardiomyopathy; Z83.3 Family history of diabetes mellitus; Z82.49 Family history of ischemic heart disease and other diseases of the circulatory system; Z79.899 Other long term (current) drug therapy; Z79.01 Long term (current) use of anticoagulants
CPT/HCPCS: 36415; 71046; 80048; 80053; 80061; 80076; 83735; 84443; 84484; 85025; 85610; 85730; 92960; 93005; 93306; 93312; 93320; 93325; 94760; 96365; 96375; 99291

== ENCOUNTER 2021-02-28 12:11 | Observation (INO) | payer OTHER ==
[2021-02-28] MEDS ORDERED: SODIUM CHLORIDE 0.9% 500 ML 500 ML IV STA (12:58)
[2021-02-28] MEDS ORDERED: MORPHINE SULFATE 4 MG/ML SYRINGE IV STA (12:58)
--- NOTE | 2021-02-28 13:00 | ED ---
General Adult HPI - General Chief complaint: Abdominal Pain Stated complaint: side/abd pain Time Seen by Provider: 02/28/21 12:54 Source: patient, RN notes reviewed, old records reviewed Mode of arrival: ambulatory Limitations: no limitations - History of Present Illness Initial comments: 56-year-old male presenting for evaluation of abdominal pain and distention. Patient states that this is been present for approximately one week. He has had stool output but states that this has not been normal. He's not had any vomiting. No fever. Pain is predominantly upper abdomen and into the right flank. No dysuria or hematuria. - Related Data Home Medications Medication Instructions Recorded Confirmed Multivitamins, Thera [Multivitamin 1 tab PO DAILY 01/31/20 01/31/20 (formulary)] Previous Rx's Medication Instructions Recorded Apixaban [Eliquis] 5 mg PO BID #60 tab 02/06/20 Amiodarone [Cordarone] 200 mg PO BID #60 tab 02/09/20 Metoprolol Tartrate [Lopressor] 25 mg PO BID #60 tab 02/09/20 Spironolactone [Aldactone] 25 mg PO DAILY #30 tab 02/09/20 Thiamine [Vitamin B-1] 100 mg PO DAILY #30 tab 02/09/20 Allergies Allergy/AdvReac Type Severity Reaction Status Date / Time No Known Allergies Allergy Verified 02/28/21 12:40 Review of Systems ROS Statement: Those systems with pertinent positive or pertinent negative responses have been documented in the HPI. ROS Other: All systems not noted in ROS Statement are negative. Past Medical History Past Medical History: Atrial Fibrillation History of Any Multi-Drug Resistant Organisms: None Reported Past Surgical History: No Surgical Hx Reported Additional Past Anesthesia/Blood Transfusion Reaction / Comment(s): never recieved Past Psychological History: No Psychological Hx Reported Smoking Status: Current every day smoker Past Alcohol Use History: Occasional Past Drug Use History: Marijuana - Past Family History Father Family Medical History: Myocardial Infarction (ME) Mother Family Medical History: Diabetes Mellitus General Exam Limitations: no limitations General appearance: alert, in no apparent distress Head exam: Present: atraumatic, normocephalic Eye exam: Present: normal appearance, PERRL ENT exam: Present: normal exam Neck exam: Present: normal inspection. Absent: tenderness, meningismus Respiratory exam: Present: normal lung sounds bilaterally. Absent: respiratory distress, wheezes Cardiovascular Exam: Present: regular rate, normal rhythm GI/Abdominal exam: Present: distended, tenderness, guarding Extremities exam: Present: normal inspection, normal capillary refill. Absent: pedal edema, calf tenderness Neurological exam: Present: alert, oriented X3, CN II-XII intact. Absent: motor sensory deficit Psychiatric exam: Present: normal affect, normal mood Skin exam: Present: warm, dry, intact Course Vital Signs 02/28/21 12:38 Temperature 98.3 F Pulse Rate 77 Respiratory 18 Rate Blood Pressure 153/77 O2 Sat by Pulse 98 Oximetry Medical Decision Making - Medical Decision Making 56-year-old male with 1 week of increasing abdominal pain and distention. On exam the patient is distended, rigid specifically in the right upper quadrant and right flank. Workup is initiated including laboratory testing and CT. L aboratory testing reveals a transaminitis and elevation in alkaline phosphatase. Normal bilirubin. Patient has CT evidence of multiple liver masses, suspect metastatic disease. He does have significant pain. He will require evaluation by oncology and general surgery. Case discussed with Dr. Negrete who will admit. - Lab Data Result diagrams: 02/28/21 13:11 02/28/21 13:11 Lab Results 02/28/21 02/28/21 02/28/21 Range/Units 13:11 13:11 13:11 WBC 11.6 H (3.8-10.6) k/uL RBC 3.80 L (4.30-5.90) m/uL Hgb 12.7 L (13.0-17.5) gm/dL Hct 37.1 L (39.0-53.0) % MCV 97.7 (80.0-100.0) fL MCH 33.3 (25.0-35.0) pg MCHC 34.1 (31.0-37.0) g/dL RDW 15.7 H (11.5-15.5) % Plt Count 354 (150-450) k/uL MPV 8.0 Neutrophils % 86 % Lymphocytes % 7 % Monocytes % 4 % Eosinophils % 0 % Basophils % 0 % Neutrophils # 10.0 H (1.3-7.7) k/uL Lymphocytes # 0.9 L (1.0-4.8) k/uL Monocytes # 0.5 (0-1.0) k/uL Eosinophils # 0.0 (0-0.7) k/uL Basophils # 0.0 (0-0.2) k/uL PT 10.2 (9.0-12.0) sec INR 0.9 (<1.2) APTT 24.4 (22.0-30.0) sec Sodium (137-145) mmol/L Potassium (3.5-5.1) mmol/L Chloride (98-107) mmol/L Carbon Dioxide (22-30) mmol/L Anion Gap mmol/L BUN (9-20) mg/dL Creatinine (0.66-1.25) mg/dL Est GFR (CKD-EPI)AfAm (>60 ml/min/1.73 sqM) Est GFR (CKD-EPI)NonAf (>60 ml/min/1.73 sqM) Glucose (74-99) mg/dL Plasma Lactic Acid Aguilar (0.7-2.0) mmol/L Calcium (8.4-10.2) mg/dL Total Bilirubin (0.2-1.3) mg/dL AST (17-59) U/L ALT (4-49) U/L Alkaline Phosphatase (38-126) U/L Total Protein (6.3-8.2) g/dL Albumin (3.5-5.0) g/dL Amylase (30-110) U/L Lipase (23-300) U/L Urine Color Yellow Urine Appearance Clear (Clear) Urine pH 6.0 (5.0-8.0) Ur Specific Mineral 1.031 (1.001-1.035) Urine Protein 1+ H (Negative) Urine Glucose (UA) Negative (Negative) Urine Ketones Negative (Negative) Urine Blood Negative (Negative) Urine Nitrite Negative (Negative) Urine Bilirubin Negative (Negative) Urine Urobilinogen 3.0 (<2.0) mg/dL Ur Leukocyte Esterase Negative (Negative) Urine RBC 1 (0-5) /hpf Urine WBC 1 (0-5) /hpf Amorphous Sediment Occasional H (None) /hpf Urine Mucus Few H (None) /hpf 02/28/21 02/28/21 Range/Units 13:11 13:11 WBC (3.8-10.6) k/uL RBC (4.30-5.90) m/uL Hgb (13.0-17.5) gm/dL Hct (39.0-53.0) % MCV (80.0-100.0) fL MCH (25.0-35.0) pg MCHC (31.0-37.0) g/dL RDW (11.5-15.5) % Plt Count (150-450) k/uL MPV Neutrophils % % Lymphocytes % % Monocytes % % Eosinophils % % Basophils % % Neutrophils # (1.3-7.7) k/uL Lymphocytes # (1.0-4.8) k/uL Monocytes # (0-1.0) k/uL Eosinophils # (0-0.7) k/uL Basophils # (0-0.2) k/uL PT (9.0-12.0) sec INR (<1.2) APTT (22.0-30.0) sec Sodium 133 L (137-145) mmol/L Potassium 4.3 (3.5-5.1) mmol/L Chloride 102 (98-107) mmol/L Carbon Dioxide 27 (22-30) mmol/L Anion Gap 4 mmol/L BUN 20 (9-20) mg/dL Creatinine 0.64 L (0.66-1.25) mg/dL Est GFR (CKD-EPI)AfAm >90 (>60 ml/min/1.73 sqM) Est GFR (CKD-EPI)NonAf >90 (>60 ml/min/1.73 sqM) Glucose 125 H (74-99) mg/dL Plasma Lactic Acid Aguilar 1.6 (0.7-2.0) mmol/L Calcium 9.3 (8.4-10.2) mg/dL Total Bilirubin 1.2 (0.2-1.3) mg/dL AST 225 H (17-59) U/L ALT 112 H (4-49) U/L Alkaline Phosphatase 621 H (38-126) U/L Total Protein 7.0 (6.3-8.2) g/dL Albumin 3.6 (3.5-5.0) g/dL Amylase 67 (30-110) U/L Lipase 110 (23-300) U/L Urine Color Urine Appearance (Clear) Urine pH (5.0-8.0) Ur Specific Mineral (1.001-1.035) Urine Protein (Negative) Urine Glucose (UA) (Negative) Urine Ketones (Negative) Urine Blood (Negative) Urine Nitrite (Negative) Urine Bilirubin (Negative) Urine Urobilinogen (<2.0) mg/dL Ur Leukocyte Esterase (Negative) Urine RBC (0-5) /hpf Urine WBC (0-5) /hpf Amorphous Sediment (None) /hpf Urine Mucus (None) /hpf Disposition Clinical Impression: Abdominal pain, Liver masses Disposition: ADMITTED IP TO THIS [facility] Condition: Stable Is patient prescribed a controlled substance at d/c from ED?: No Referrals: Melchor Yip DO [Primary Care Provider] - 1-2 days Decision to Admit Reason: Admit from EC Decision Date: 02/28/21 Decision Time: 15:10
[2021-02-28 13:20] LABS: Basophils % (A) 0 %; Eosinophils % (A) 0 %; HCT 37.1 % (39.0-53.0); HGB 12.7 gm/dL (13.0-17.5); Lymphocytes # (A) 0.9 k/uL (1.0-4.8); Lymphocytes % (A) 7 %; MCH 33.3 pg (25.0-35.0); MCHC 34.1 g/dL (31.0-37.0); MCV 97.7 fL (80.0-100.0); Monocytes # (A) 0.5 k/uL (0-1.0); Monocytes % (A) 4 %; Neutrophils % (A) 86 %; Platelet Count 354 k/uL (150-450); RDW 15.7 % (11.5-15.5); WBC 11.6 k/uL (3.8-10.6)
[2021-02-28 13:33] LABS: ALT 112 U/L (4-49); AST 225 U/L (17-59); African American GFR (CKD) >90 (>60 ml/min/1.73 sqM); Albumin 3.6 g/dL (3.5-5.0); Alkaline Phosphatase 621 U/L (38-126); Amylase 67 U/L (30-110); Anion Gap 4 mmol/L; Blood Urea Nitrogen 20 mg/dL (9-20); Calcium 9.3 mg/dL (8.4-10.2); Carbon Dioxide 27 mmol/L (22-30); Chloride 102 mmol/L (98-107); Glucose 125 mg/dL (74-99); Lipase 110 U/L (23-300); Non-African American GFR(CKD) >90 (>60 ml/min/1.73 sqM); Potassium 4.3 mmol/L (3.5-5.1); Sodium 133 mmol/L (137-145); Total Bilirubin 1.2 mg/dL (0.2-1.3)
[2021-02-28 13:34] LABS: INR 0.9 (<1.2); Partial Thromboplastin Time 24.4 sec (22.0-30.0); Prothrombin Time 10.2 sec (9.0-12.0)
[2021-02-28 13:37] LABS: Amorphous Sediment,Urine Occasional /hpf; Appearance,Urine Clear (Clear); Bilirubin,Urine Negative (Negative); Blood,Urine Negative (Negative); Color,Urine Yellow; Glucose,Urine (UA) Negative (Negative); Ketones,Urine Negative (Negative); Leukocyte Esterase,Urine Negative (Negative); Mucus,Urine Few /hpf; Nitrite,Urine Negative (Negative); Protein,Urine 1+ (Negative); RBC,Urine 1 /hpf (0-5); Specific Gravity,Urine 1.031 (1.001-1.035); WBC,Urine 1 /hpf (0-5)
--- NOTE | 2021-02-28 14:04 | CT ---
EXAMINATION TYPE: CT abdomen pelvis w con DATE OF EXAM: 02/28/2021 COMPARISON: None. HISTORY: Stomach bloating, right sided abdominal pain CT DLP: 641 mGycm, Automated Exposure Control for Dose Reduction was Utilized. CONTRAST: CT scan of the abdomen and pelvis is performed without oral but with with IV Contrast, patient inject ed with 100 mL of Isovue 300. FINDINGS: LUNG BASES: Mildly anterior right basilar linear scarring. LIVER/GB: Hepatomegaly with innumerable heterogeneous hypodense masses occupying majority of the uppe r to mid abdomen. Significant local mass effect is present. Gallbladder likely within normal limits a xial image 44. No biliary dilatation. PANCREAS: No significant abnormality is seen. SPLEEN: No significant abnormality is seen. ADRENALS: No significant abnormality is seen. KIDNEYS: Symmetric cortical medullary uptake and excretion without hydronephrosis seen bilaterally. P oorly distended bladder with moderate wall thickening slightly eccentric anteriorly up to 1.4 cm. BOWEL: Normal-appearing appendix from the cecum in the right pelvis. No suspicious small or large bow el dilatation. Stomach poorly distended and thus suboptimally evaluated. Diffuse gastric wall promine nce is nonspecific. Sigmoid colonic diverticulosis. [id number] wall thickening sigmoid colon is nonspecific. Mild wall thickening in the left colon. PROSTATE/SEMINAL VESICLES: Prostate gland normal in size with some scattered central calcifications. LYMPH NODES: No greater than 1cm abdominal or pelvic lymph nodes are appreciated. OSSEOUS STRUCTURES: No significant abnormality is seen. OTHER: Moderate amount free fluid in pelvic cul-de-sac axial image 72. Moderate calcified plaque of t he aorta extending into iliac branch vessels. More severe calcified plaque right common femoral arter y level causing stenosis greater than 50% near axial image 74. IMPRESSION: Hepatomegaly with innumerable heterogeneous hypodense masses consistent with metastatic d isease. Significant local mass effect noted. Primary site of neoplasm uncertain. Further workup and c linical follow-up advised.
[2021-02-28] MEDS ORDERED: NALOXONE 0.4 MG/ML 1 ML VIAL IV PRN (15:07)
[2021-02-28] MEDS: MORPHINE SULFATE 4 MG/ML SYRINGE IV PRN ×2 (15:15→20:29)
[2021-02-28] MEDS ORDERED: LORazepam 2 MG/ML INJ IV PRN ×3 (18:06)
[2021-02-28] MEDS ORDERED: THIAMINE 100 MG/ML 2 ML VIAL IM STA (18:06)
[2021-02-28] MEDS: THIAMINE 100 MG TAB PO SCH (20:30)
[2021-02-28] MEDS: SODIUM CHLORIDE 0.9% 1,000 ML IV SCH (20:32)
[2021-03-01] MEDS: MORPHINE SULFATE 4 MG/ML SYRINGE IV PRN ×3 (04:31→14:19)
[2021-03-01 07:23] LABS: Basophils % (A) 0 %; Eosinophils # (A) 0.1 k/uL (0-0.7); Eosinophils % (A) 1 %; HCT 38.8 % (39.0-53.0); Lymphocytes # (A) 0.7 k/uL (1.0-4.8); Lymphocytes % (A) 7 %; MCH 33.6 pg (25.0-35.0); MCHC 33.5 g/dL (31.0-37.0); MCV 100.4 fL (80.0-100.0); Macrocytosis Slight; Mean Platelet Volume 8.5; Monocytes # (A) 0.5 k/uL (0-1.0); Monocytes % (A) 4 %; Neutrophils # (A) 9.3 k/uL (1.3-7.7); Neutrophils % (A) 87 %; Platelet Count 343 k/uL (150-450); RBC 3.86 m/uL (4.30-5.90); RDW 15.5 % (11.5-15.5); WBC 10.7 k/uL (3.8-10.6)
[2021-03-01] MEDS: SPIRONOLACTONE 25 MG TAB PO SCH (08:10)
[2021-03-01] MEDS: THIAMINE 100 MG TAB PO SCH ×2 (08:11→17:40)
[2021-03-01] MEDS: AMIODARONE 100 MG TAB PO SCH (08:11)
[2021-03-01] MEDS: MULTIVITAMINS, THERA 1 EACH TAB PO SCH (08:11)
[2021-03-01] MEDS: METOPROLOL SUCCINATE (ER) 25 MG TAB.ER.24H PO SCH (08:20)
--- NOTE | 2021-03-01 10:59 | P.HPIM ---
History of Present Illness H&P Date: 02/28/21 Chief Complaint: Abdominal pain 56-year-old male with history of atrial fibrillation, hypertension, presenting for evaluation of abdominal pain and distention. Patient states that this is been present for approximately one week. He has had stool output but states that this has not been normal. He's not had any vomiting. No fever. Pain is predominantly upper abdomen and into the right flank. No dysuria or hematuria. Workup completed in ED blood work revealed sodium 133, potassium 4.3, BUN/creatinine of 20/60.64 lactic acid level of 1.6, AST/ALT of 225/112, total b ilirubin of 1.2; WBC elevated at 11.6, hemoglobin 12.7 and platelet count of 354, UA is positive for nitrites, bacteria and WBCs CT of abdomen is completed which reveals multiple liver masses with suspected metastatic disease Review of Systems REVIEW OF SYSTEMS: CONSTITUTIONAL: No fever, no malaise, no fatigue. HEENT: No recent visual problems or hearing problems. Denied any sore throat. CARDIOVASCULAR: No chest pain, orthopnea, PND, no palpitations, no syncope. PULMONARY: No shortness of breath, no cough, no hemoptysis. GASTROINTESTINAL: abdominal pain. NEUROLOGICAL: No headaches, no weakness, no numbness. HEMATOLOGICAL: Denies any bleeding or petechiae. GENITOURINARY: Denies any burning micturition, frequency, or urgency. MUSCULOSKELETAL/RHEUMATOLOGICAL: Denies any joint pain, swelling, or any muscle pain. ENDOCRINE: Denies any polyuria or polydipsia. The rest of the 14-point review of systems is negative. Past Medical History Past Medical History: Atrial Fibrillation History of Any Multi-Drug Resistant Organisms: None Reported Past Surgical History: No Surgical Hx Reported Additional Past Anesthesia/Blood Transfusion Reaction / Comment(s): never recieved Past Psychological History: No Psychological Hx Reported Smoking Status: Current every day smoker Past Alcohol Use History: Occasional Past Drug Use History: Marijuana - Past Family History Father Family Medical History: Myocardial Infarction ([place]) Mother Family Medical History: Diabetes Mellitus Medications and Allergies Home Medications Medication Instructions Recorded Confirmed Type Multivitamins, Thera [Multivitamin 1 tab PO DAILY 01/31/20 02/28/21 History (formulary)] Spironolactone [Aldactone] 25 mg PO DAILY #30 tab 02/09/20 02/28/21 Rx Amiodarone [Cordarone] 100 mg PO DAILY 02/28/21 02/28/21 History Metoprolol Succinate (ER) [Toprol 25 mg PO DAILY 02/28/21 02/28/21 History Xl] lisinopriL [Zestril] 2.5 mg PO DAILY 02/28/21 02/28/21 History Allergies Allergy/AdvReac Type Severity Reaction Status Date / Time No Known Allergies Allergy Verified 02/28/21 15:39 Physical Exam Vitals: Vital Signs Temp Pulse Resp BP Pulse Ox 02/28/21 12:38 98.3 F 77 18 153/77 98 Intake and Output 02/27/21 02/28/21 02/28/21 22:59 06:59 14:59 Other: Weight 63.503 kg PHYSICAL EXAMINATION: GENERAL: The patient is alert and oriented x3, not in any acute distress. Well developed, well nourished. HEENT: Pupils are round and equally reacting to light. EOMI. No scleral icterus. No conjunctival pallor. Normocephalic, atraumatic. No pharyngeal erythema. No thyromegaly. CARDIOVASCULAR: S1 and S2 present. No murmurs, rubs, or gallops. PULMONARY: Chest is clear to auscultation, no wheezing or crackles. ABDOMEN: Soft, nontender, nondistended, normoactive bowel sounds. No palpable organomegaly. MUSCULOSKELETAL: No joint swelling or deformity. EXTREMITIES: No cyanosis, clubbing, or pedal edema. NEUROLOGICAL: Gross neurological examination did not reveal any focal deficits. SKIN: No rashes. Results CBC & Chem 7: 03/01/21 06:31 02/28/21 13:11 Labs: Abnormal Lab Results - Last 24 Hours (Table) 02/28/21 02/28/21 02/28/21 Range/Units 13:11 13:11 13:11 WBC 11.6 H (3.8-10.6) k/uL RBC 3.80 L (4.30-5.90) m/uL Hgb 12.7 L (13.0-17.5) gm/dL Hct 37.1 L (39.0-53.0) % RDW 15.7 H (11.5-15.5) % Neutrophils # 10.0 H (1.3-7.7) k/uL Lymphocytes # 0.9 L (1.0-4.8) k/uL Sodium 133 L (137-145) mmol/L Creatinine 0.64 L (0.66-1.25) mg/dL Glucose 125 H (74-99) mg/dL AST 225 H (17-59) U/L ALT 112 H (4-49) U/L Alkaline Phosphatase 621 H (38-126) U/L Urine Protein 1+ H (Negative) Amorphous Sediment Occasional H (None) /hpf Urine Mucus Few H (None) /hpf Assessment and Plan Assessment: 1. Intractable abdominal pain possibly related to metastatic liver disease - Pain controlled with morphine 2. Liver masses; possible metastatic disease; general surgery and oncology consulted 3. Hypertension; continue with home dose of lisinopril 2.5 mg daily along with metoprolol 25 mg daily and Aldactone 25 mg daily 4. Atrial fibrillation; rate controlled on metoprolol 25 mg daily and amiodarone 200 mg daily DVT prophylaxis; SCDs CODE STATUS; full code
--- NOTE | 2021-03-01 12:19 | P.GSCN ---
History of Present Illness Consult date: 03/01/21 History of present illness: This 55-year-old male presented with abdominal pain. He stated started several weeks ago. He does have a history of EtOH abuse drinks a pint today. He's never had a colonoscopy before in the past. He states he was having some blood in his urine. On computed tomography scan in the emergency department he had hepatomegaly with multiple lesions within the liver suspicious from metastatic disease. He has no history of any cancer. His family history is significant only for breast cancer in his mother. Past Medical History Past Medical History: Atrial Fibrillation Additional Past Medical History / Comment(s): ETOH, pt states he drinks 1 pint of whiskey per day, marijuana use daily, 1 pack per day smoker. History of Any Multi-Drug Resistant Organisms: None Reported Past Surgical History: No Surgical Hx Reported Additional Past Anesthesia/Blood Transfusion Reaction / Comm: never recieved Past Psychological History: No Psychological Hx Reported Smoking Status: Current every day smoker Past Alcohol Use History: Occasional Past Drug Use History: Marijuana - Past Family History Father Family Medical History: Myocardial Infarction ([place]) Mother Family Medical History: Diabetes Mellitus Medications and Allergies Home Medications Medication Instructions Recorded Confirmed Type Multivitamins, Thera [Multivitamin 1 tab PO DAILY 01/31/20 02/28/21 History (formulary)] Spironolactone [Aldactone] 25 mg PO DAILY #30 tab 02/09/20 02/28/21 Rx Amiodarone [Cordarone] 100 mg PO DAILY 02/28/21 02/28/21 History Metoprolol Succinate (ER) [Toprol 25 mg PO DAILY 02/28/21 02/28/21 History Xl] lisinopriL [Zestril] 2.5 mg PO DAILY 02/28/21 02/28/21 History Allergies Allergy/AdvReac Type Severity Reaction Status Date / Time No Known Allergies Allergy Verified 02/28/21 15:39 Surgical - Exam Osteopathic Statement: *. No significant issues noted on an osteopathic struc tural exam other than those noted in the History and Physical/Consult. Vital Signs Temp Pulse Resp BP Pulse Ox 98.3 F 77 18 153/77 98 02/28/21 12:38 02/28/21 12:38 02/28/21 12:38 02/28/21 12:38 02/28/21 12:38 - General no distress, cachectic, chronically ill - Eyes PERRL - Neck trachea midline - Cardiovascular Rhythm: regular - Abdomen Hepatomegaly Abdomen: soft, no tender - Neurologic normal coordination, normal sensation - Psychiatric oriented to time, oriented to person, oriented to place Results - Labs 03/01/21 06:31 02/28/21 13:11 Abnormal Lab Results - Last 24 Hours (Table) 02/28/21 02/28/21 02/28/21 Range/Units 13:11 13:11 13:11 WBC 11.6 H (3.8-10.6) k/uL RBC 3.80 L (4.30-5.90) m/uL Hgb 12.7 L (13.0-17.5) gm/dL Hct 37.1 L (39.0-53.0) % MCV (80.0-100.0) fL RDW 15.7 H (11.5-15.5) % Neutrophils # 10.0 H (1.3-7.7) k/uL Lymphocytes # 0.9 L (1.0-4.8) k/uL Sodium 133 L (137-145) mmol/L Creatinine 0.64 L (0.66-1.25) mg/dL Glucose 125 H (74-99) mg/dL AST 225 H (17-59) U/L ALT 112 H (4-49) U/L Alkaline Phosphatase 621 H (38-126) U/L Urine Protein 1+ H (Negative) Amorphous Sediment Occasional H (None) /hpf Urine Mucus Few H (None) /hpf 03/01/21 Range/Units 06:31 WBC 10.7 H (3.8-10.6) k/uL RBC 3.86 L (4.30-5.90) m/uL Hgb (13.0-17.5) gm/dL Hct 38.8 L (39.0-53.0) % MCV 100.4 H (80.0-100.0) fL RDW (11.5-15.5) % Neutrophils # 9.3 H (1.3-7.7) k/uL Lymphocytes # 0.7 L (1.0-4.8) k/uL Sodium (137-145) mmol/L Creatinine (0.66-1.25) mg/dL Glucose (74-99) mg/dL AST (17-59) U/L ALT (4-49) U/L Alkaline Phosphatase (38-126) U/L Urine Protein (Negative) Amorphous Sediment (None) /hpf Urine Mucus (None) /hpf Diabetes panel 02/28/21 Range/Units 13:11 Sodium 133 L (137-145) mmol/L Potassium 4.3 (3.5-5.1) mmol/L Chloride 102 (98-107) mmol/L Carbon Dioxide 27 (22-30) mmol/L BUN 20 (9-20) mg/dL Creatinine 0.64 L (0.66-1.25) mg/dL Glucose 125 H (74-99) mg/dL Calcium 9.3 (8.4-10.2) mg/dL AST 225 H (17-59) U/L ALT 112 H (4-49) U/L Alkaline Phosphatase 621 H (38-126) U/L Total Protein 7.0 (6.3-8.2) g/dL Albumin 3.6 (3.5-5.0) g/dL Calcium panel 02/28/21 Range/Units 13:11 Calcium 9.3 (8.4-10.2) mg/dL Albumin 3.6 (3.5-5.0) g/dL Pituitary panel 02/28/21 Range/Units 13:11 Sodium 133 L (137-145) mmol/L Potassium 4.3 (3.5-5.1) mmol/L Chloride 102 (98-107) mmol/L Carbon Dioxide 27 (22-30) mmol/L BUN 20 (9-20) mg/dL Creatinine 0.64 L (0.66-1.25) mg/dL Glucose 125 H (74-99) mg/dL Calcium 9.3 (8.4-10.2) mg/dL Adrenal panel 02/28/21 Range/Units 13:11 Sodium 133 L (137-145) mmol/L Potassium 4.3 (3.5-5.1) mmol/L Chloride 102 (98-107) mmol/L Carbon Dioxide 27 (22-30) mmol/L BUN 20 (9-20) mg/dL Creatinine 0.64 L (0.66-1.25) mg/dL Glucose 125 H (74-99) mg/dL Calcium 9.3 (8.4-10.2) mg/dL Total Bilirubin 1.2 (0.2-1.3) mg/dL AST 225 H (17-59) U/L ALT 112 H (4-49) U/L Alkaline Phosphatase 621 H (38-126) U/L Total Protein 7.0 (6.3-8.2) g/dL Albumin 3.6 (3.5-5.0) g/dL Assessment and Plan Assessment: Hepatomegaly with multiple liver lesions suspicious for metastatic disease Plan: Patient has what appears to be the primary liver cancer or metastatic disease within his liver. There is no surgical option for this patient at this time. Follow up with oncology recommendations and will likely need IR guided biopsy. The physical exam finding it was reported by the ER physician regarding patient's abdomen I suspect is actually his enlarged liver. There was no signs of any other acute intra-abdominal process.
[2021-03-01 13:26] LABS: African American GFR (CKD) 129.4 (60.0-200.0); Albumin 3.6 g/dL (3.8-4.9); Albumin/Globulin Ratio 1.33 (1.60-3.17); Anion Gap 10.4 mmol/L (10.00-18.00); Bilirubin, Conjugated 0.52 mg/dL (0.20-0.40); Bilirubin,Unconjugated 0.36 mg/dL (0.20-1.00); Blood Urea Nitrogen 16.2 mg/dL (9.0-27.0); Calcium 8.9 mg/dL (8.7-10.3); Carbon Dioxide 25.6 mmol/L (20.0-27.5); Globulin 2.7 g/dL (1.6-3.3); Non-African American GFR(CKD) 111.6 (60.0-200.0); Potassium 4.9 mmol/L (3.5-5.5); Total Bilirubin 0.9 mg/dL (0.30-1.20); Total Protein 6.3 g/dL (6.2-8.2)
[2021-03-01] MEDS: ONDANSETRON 4 MG/2 ML VIAL IVP PRN ×2 (14:50→21:53)
[2021-03-01] MEDS: NICOTINE 21MG/24HR PATCH TRANSDERM SCH (14:51)
[2021-03-01] MEDS: SODIUM CHLORIDE 0.9% 1,000 ML IV SCH (17:40)
[2021-03-01] MEDS ORDERED: RX INFO: IV CONTRAST WAS GIVEN 1 EACH MISC MISCELLANE PRN (19:57)
--- NOTE | 2021-03-01 20:03 | P.CONS ---
History of Present Illness - Reason for Consult Consult date: 03/01/21 Liver Masses Requesting physician: Nikhil Enriquez - Chief Complaint Abdominal distention - History of Present Illness Mr. Arteaga is a 56 year old life long smoker, daily ETOH and daily marijuana user who presented to [facility] ER with worsening abdokminal pain and distention. On admission he was found to have hepatamegaly with multiple liver lesions concerning for metastatic melignancy. Because of these findings we have been asked to further evaluate. Review of Systems All systems: negative Constitutional: Reports as per HPI Past Medical History Past Medical History: Atrial Fibrillation Additional Past Medical History / Comment(s): ETOH, pt states he drinks 1 pint of whiskey per day, marijuana use daily, 1 pack per day smoker. History of Any Multi-Drug Resistant Organisms: None Reported Past Surgical History: No Surgical Hx Reported Additional Past Anesthesia/Blood Transfusion Reaction / Comm: never recieved Past Psychological History: No Psychological Hx Reported Smoking Status: Current every day smoker Past Alcohol Use History: Occasional Past Drug Use History: Marijuana - Past Family History Father Family Medical History: Myocardial Infarction ([place]) Mother Family Medical History: Diabetes Mellitus Medications and Allergies Home Medications Medication Instructions Recorded Confirmed Type Multivitamins, Thera [Multivitamin 1 tab PO DAILY 01/31/20 02/28/21 History (formulary)] Spironolactone [Aldactone] 25 mg PO DAILY #30 tab 02/09/20 02/28/21 Rx Amiodarone [Cordarone] 100 mg PO DAILY 02/28/21 02/28/21 History Metoprolol Succinate (ER) [Toprol 25 mg PO DAILY 02/28/21 02/28/21 History Xl] lisinopriL [Zestril] 2.5 mg PO DAILY 02/28/21 02/28/21 History Allergies Allergy/AdvReac Type Severity Reaction Status Date / Time No Known Allergies Allergy Verified 02/28/21 15:39 Physical Exam Vitals: Vital Signs Temp Pulse Pulse Resp BP Pulse Ox 03/01/21 13:00 98.1 F 68 18 118/81 95 03/01/21 08:10 73 133/87 03/01/21 05:00 97.9 F 75 20 124/81 95 02/28/21 20:20 97.8 F 73 20 138/87 95 Intake and Output 03/01/21 03/01/21 03/01/21 06:59 14:59 22:59 Intake Total 300 120 240 Balance 300 120 240 Intake: Oral 300 120 240 Other: # Voids 1 3 # Bowel Movements 1 - Constitutional General appearance: cooperative, no acute distress - EENT Eyes: EOMI ENT: NA/AT - Respiratory Respiratory: bilateral: diminished - Gastrointestinal General gastrointestinal: hepatomegaly - Integumentary Integumentary: pale - Neurologic Neurologic: CNII-XII intact - Musculoskeletal Musculoskeletal: generalized weakness - Psychiatric Psychiatric: A&O x's 3 Results CBC & Chem 7: 03/01/21 06:31 03/01/21 06:31 Labs: Abnormal Lab Results - Last 24 Hours (Table) 03/01/21 03/01/21 Range/Units 06:31 06:31 WBC 10.7 H (3.8-10.6) k/uL RBC 3.86 L (4.30-5.90) m/uL Hct 38.8 L (39.0-53.0) % MCV 100.4 H (80.0-100.0) fL Neutrophils # 9.3 H (1.3-7.7) k/uL Lymphocytes # 0.7 L (1.0-4.8) k/uL BUN/Creatinine Ratio 27.00 H (12.00-20.00) Ratio Conjugated Bilirubin 0.52 H (0.20-0.40) mg/dL AST 175 H (14-35) U/L ALT 104 H (10-49) U/L Alkaline Phosphatase 581 H (41-126) U/L Albumin 3.6 L (3.8-4.9) g/dL Albumin/Globulin Ratio 1.33 L (1.60-3.17) g/dL CT scan - abdomen: report reviewed CT scan - pelvis: report reviewed Assessment and Plan (1) Hepatomegaly Current Visit: Yes Status: Acute Code(s): R16.0 - HEPATOMEGALY, NOT ELSEWHERE CLASSIFIED SNOMED Code(s): 95452725 (2) Liver masses Current Visit: Yes Status: Acute Code(s): R16.0 - HEPATOMEGALY, NOT ELSEWHERE CLASSIFIED SNOMED Code(s): 186775046 Plan: Assessment and recommendations: Innumerable Masses found occupying liver on CT abdomen: - Further evaluation for primary malignancy is needed, CT chest ordered - Per CT Significant mass effect present, Will need biopsy for diagnosis - If CT chest is negative and AFP is negative will ask General surgery for EGD/Colonoscopy Significant ETOH, TObacco and Marijuana use in History: - A primary Lung cancer with metastatic disease to liver cannot be excluded THank you for alloqing us to participate in the care of this patient, we will follow.
--- NOTE | 2021-03-01 21:58 | CT ---
EXAMINATION TYPE: CT chest w con DATE OF EXAM: 03/01/2021 COMPARISON: None HISTORY: liver masses, SOB CT DLP: 148.1 mGycm Automated exposure control for dose reduction was used. CONTRAST: Performed with IV Contrast, patient injected with 100 mL of Isovue 300. Images obtained from the thoracic inlet to the diaphragm with IV contrast. There are multiple enlarged mediastinal lymph nodes that measure up to 2.5 cm. There is masslike infi ltrate at the right pulmonary hilum extending into the right upper lobe. There is 4 x 2.6 cm irregula r masslike consolidation in the lateral aspect right upper lobe. The heart size is normal. Thoracic a victor manuel is intact. There is mild pulmonary emphysema. There is no pleural effusion. There are multiple h ypodensities throughout the liver consistent with metastatic disease. The bony thorax is intact. Sternum is intact. IMPRESSION: Mediastinal and right bronchial adenopathy. Masslike infiltrate right upper lobe suspicious for prima ry tumor.
[2021-03-02] MEDS: THIAMINE 100 MG TAB PO SCH ×2 (07:56→18:00)
[2021-03-02] MEDS: METOPROLOL SUCCINATE (ER) 25 MG TAB.ER.24H PO SCH (07:56)
[2021-03-02] MEDS: SPIRONOLACTONE 25 MG TAB PO SCH (07:56)
[2021-03-02] MEDS: AMIODARONE 100 MG TAB PO SCH (07:56)
[2021-03-02] MEDS: MULTIVITAMINS, THERA 1 EACH TAB PO SCH (07:56)
[2021-03-02] MEDS: NICOTINE 21MG/24HR PATCH TRANSDERM SCH (07:56)
[2021-03-02 09:48] LABS: INR 0.94 (0.90-1.11); Prothrombin Time 10.6 sec (9.9-11.9)
[2021-03-02 10:47] LABS: Vitamin B12 >2000.0 pg/mL (200.0-944.0)
--- NOTE | 2021-03-02 11:45 | P.PN ---
Subjective Progress Note Date: 03/03/21 Principal diagnosis: Likely new Malignancy CT of chest with suspicion of primary lung cancer picture. IR has been consulted for Biopsy of metastatic site, liver. Await results for further recommendations Objective - Vital Signs Vital signs: Vital Signs Temp 97.3 F L 03/02/21 05:00 Pulse 62 03/02/21 05:00 Resp 20 03/02/21 05:00 BP 130/79 03/02/21 05:00 Pulse Ox 92 L 03/02/21 05:00 Intake & Output 03/01/21 03/02/21 03/02/21 18:59 06:59 18:59 Intake Total 120 440 Balance 120 440 Intake: Oral 120 440 Other: # Voids 3 1 # Bowel Movements 1 - Constitutional General appearance: Present: cooperative, no acute distress - EENT Eyes: Present: poor dentition ENT: Present: NA/AT - Neck Neck: Present: normal ROM - Respiratory Respiratory: bilateral: CTA - Cardiovascular Rhythm: regularly irregular - Gastrointestinal General gastrointestinal: Present: soft - Integumentary Integumentary: Present: pale - Neurologic Neurologic: Present: CNII-XII intact - Musculoskeletal Musculoskeletal: Present: generalized weakness - Psychiatric Psychiatric: Present: A&O x's 3 - Labs CBC & Chem 7: 03/01/21 06:31 03/01/21 06:31 Labs: Abnormal Lab Results - Last 24 Hours (Table) 03/01/21 03/02/21 Range/Units 06:31 05:07 BUN/Creatinine Ratio 27.00 H (12.00-20.00) Ratio Conjugated Bilirubin 0.52 H (0.20-0.40) mg/dL AST 175 H (14-35) U/L ALT 104 H (10-49) U/L Alkaline Phosphatase 581 H (41-126) U/L Albumin 3.6 L (3.8-4.9) g/dL Albumin/Globulin Ratio 1.33 L (1.60-3.17) g/dL Vitamin B12 >2000.0 H (200.0-944.0) pg/mL Assessment and Plan (1) Hepatomegaly Status: Acute Code(s): R16.0 - HEPATOMEGALY, NOT ELSEWHERE CLASSIFIED SNOMED Code(s): 44457936 (2) Liver masses Status: Acute Code(s): R16.0 - HEPATOMEGALY, NOT ELSEWHERE CLASSIFIED SNOMED Code(s): 672673836 Plan: Biopsy of liver today Will set up patient to be seen next week in office for further treatment recommendations after pathology returns
[2021-03-02] MEDS: MORPHINE SULFATE 4 MG/ML SYRINGE IV PRN (12:56)
[2021-03-02] MEDS: SODIUM CHLORIDE 0.9% 1,000 ML IV SCH (18:01)
--- NOTE | 2021-03-02 20:18 | P.PN ---
Subjective Progress Note Date: 03/01/21 56-year-old male with history of atrial fibrillation, hypertension, presenting for evaluation of abdominal pain and distention. Patient states that this is been present for approximately one week. He has had stool output but states that this has not been normal. He's not had any vomiting. No fever. Pain is predominantly upper abdomen and into the right flank. No dysuria or hematuria. Workup completed in ED blood work revealed sodium 133, potassium 4.3, BUN/creatinine of 20/60.64 lactic acid level of 1.6, AST/ALT of 225/112, total bilirubin of 1.2; WBC elevated at 11.6, hemoglobin 12.7 and platelet count of 354, UA is positive for nitrites, bacteria and WBCs CT of abdomen is completed which reveals multiple liver masses with suspected metastatic diseas Objective - Vital Signs Vital signs: Vital Signs Temp 98.1 F 03/01/21 13:00 Pulse 68 03/01/21 13:00 Resp 18 03/01/21 13:00 BP 118/81 03/01/21 13:00 Pulse Ox 95 03/01/21 13:00 Intake & Output 02/28/21 03/01/21 03/01/21 18:59 06:59 18:59 Intake Total 660 120 Balance 660 120 Weight 63.503 kg Intake: Oral 660 120 Other: # Voids 0 1 - Exam GENERAL: The patient is alert and oriented x3, not in any acute distress. Well developed, well nourished. HEENT: Pupils are round and equally reacting to light. EOMI. No scleral icterus. No conjunctival pallor. Normocephalic, atraumatic. No pharyngeal erythema. No thyromegaly. CARDIOVASCULAR: S1 and S2 present. No murmurs, rubs, or gallops. PULMONARY: Chest is clear to auscultation, no wheezing or crackles. ABDOMEN: Soft, nontender, nondistended, normoactive bowel sounds. No palpable organomegaly. MUSCULOSKELETAL: No joint swelling or deformity. EXTREMITIES: No cyanosis, clubbing, or pedal edema. NEUROLOGICAL: Gross neurological examination did not reveal any focal deficits. SKIN: No rashes. - Labs CBC & Chem 7: 03/01/21 06:31 03/01/21 06:31 Labs: Abnormal Lab Results - Last 24 Hours (Table) 03/01/21 03/01/21 Range/Units 06:31 06:31 WBC 10.7 H (3.8-10.6) k/uL RBC 3.86 L (4.30-5.90) m/uL Hct 38.8 L (39.0-53.0) % MCV 100.4 H (80.0-100.0) fL Neutrophils # 9.3 H (1.3-7.7) k/uL Lymphocytes # 0.7 L (1.0-4.8) k/uL BUN/Creatinine Ratio 27.00 H (12.00-20.00) Ratio Conjugated Bilirubin 0.52 H (0.20-0.40) mg/dL AST 175 H (14-35) U/L ALT 104 H (10-49) U/L Alkaline Phosphatase 581 H (41-126) U/L Albumin 3.6 L (3.8-4.9) g/dL Albumin/Globulin Ratio 1.33 L (1.60-3.17) g/dL Assessment and Plan Assessment: 1. Intractable abdominal pain possibly related to metastatic liver disease - Pain controlled with morphine 2. Liver masses; possible metastatic disease; general surgery and oncology c onsulted 3. Hypertension; continue with home dose of lisinopril 2.5 mg daily along with metoprolol 25 mg daily and Aldactone 25 mg daily 4. Atrial fibrillation; rate controlled on metoprolol 25 mg daily and amiodarone 200 mg daily DVT prophylaxis; SCDs CODE STATUS; full code
--- NOTE | 2021-03-02 20:20 | P.PN ---
Subjective Progress Note Date: 03/02/21 Principal diagnosis: Intractable abdominal pain possibly related to metastatic liver disease Liver masses; possible metastatic disease Lung nodule, possible primary 56-year-old male with history of atrial fibrillation, hypertension, presenting for evaluation of abdominal pain and distention. Patient states that this is been present for approximately one week. He has had stool output but states that this has not been normal. He's not had any vomiting. No fever. Pain is predominantly upper abdomen and into the right flank. No dysuria or hematuria. Workup completed in ED blood work revealed sodium 133, potassium 4.3, BUN/creatinine of 20/60.64 lactic acid level of 1.6, AST/ALT of 225/112, total bilirubin of 1.2; WBC elevated at 11.6, hemoglobin 12.7 and platelet count of 354, UA is positive for nitrites, bacteria and WBCs CT of abdomen is completed which reveals multiple liver masses with suspected metastatic diseas 03/02/2021 Patient is seen and evaluated sitting up in bed; family is at bedside Vital signs are stable temperature 97.3, pulse 62, respiration 20 and blood pressure 130/79 CT of the chest reveals lung nodule suspicious for primary lung cancer IR has been consulted for biopsy of metastatic site possibly liver Oncology on board and agreeable with plan Continue with IV narcotics for pain control Objective - Vital Signs Vital signs: Vital Signs Temp 98.3 F 03/02/21 11:53 Pulse 78 03/02/21 11:53 Resp 16 03/02/21 11:53 BP 114/73 03/02/21 11:53 Pulse Ox 94 L 03/02/21 11:53 Intake & Output 03/01/21 03/02/21 03/02/21 18:59 06:59 18:59 Intake Total 120 440 Balance 120 440 Intake: Oral 120 440 Other: # Voids 3 1 # Bowel Movements 1 - Exam GENERAL: The patient is alert and oriented x3, not in any acute distress. Well developed, well nourished. HEENT: Pupils are round and equally reacting to light. EOMI. No scleral icterus. No conjunctival pallor. Normocephalic, atraumatic. No pharyngeal erythema. No thyromegaly. CARDIOVASCULAR: S1 and S2 present. No murmurs, rubs, or gallops. PULMONARY: Chest is clear to auscultation, no wheezing or crackles. ABDOMEN: Soft, nontender, nondistended, normoactive bowel sounds. No palpable organomegaly. MUSCULOSKELETAL: No joint swelling or deformity. EXTREMITIES: No cyanosis, clubbing, or pedal edema. NEUROLOGICAL: Gross neurological examination did not reveal any focal deficits. SKIN: No rashes. - Labs CBC & Chem 7: 03/01/21 06:31 03/01/21 06:31 Labs: Abnormal Lab Results - Last 24 Hours (Table) 03/01/21 03/02/21 Range/Units 06:31 05:07 BUN/Creatinine Ratio 27.00 H (12.00-20.00) Ratio Conjugated Bilirubin 0.52 H (0.20-0.40) mg/dL AST 175 H (14-35) U/L ALT 104 H (10-49) U/L Alkaline Phosphatase 581 H (41-126) U/L Albumin 3.6 L (3.8-4.9) g/dL Albumin/Globulin Ratio 1.33 L (1.60-3.17) g/dL Vitamin B12 >2000.0 H (200.0-944.0) pg/mL Assessment and Plan Assessment: 1. Intractable abdominal pain possibly related to metastatic liver disease - Pain controlled with morphine 2. Liver masses; possible metastatic disease; general surgery and oncology consulted 3. Hypertension; continue with home dose of lisinopril 2.5 mg daily along with metoprolol 25 mg daily and Aldactone 25 mg daily 4. Atrial fibrillation; rate controlled on metoprolol 25 mg daily and amiodarone 200 mg daily DVT prophylaxis; SCDs CODE STATUS; full code
[2021-03-02] MEDS: ONDANSETRON 4 MG/2 ML VIAL IVP PRN (20:46)
[2021-03-03] MEDS: MORPHINE SULFATE 4 MG/ML SYRINGE IV PRN ×2 (04:43→09:03)
[2021-03-03] MEDS: THIAMINE 100 MG TAB PO SCH (07:54)
[2021-03-03] MEDS: SPIRONOLACTONE 25 MG TAB PO SCH (07:54)
[2021-03-03] MEDS: METOPROLOL SUCCINATE (ER) 25 MG TAB.ER.24H PO SCH (07:54)
[2021-03-03] MEDS: NICOTINE 21MG/24HR PATCH TRANSDERM SCH (07:54)
[2021-03-03] MEDS: MULTIVITAMINS, THERA 1 EACH TAB PO SCH (07:55)
[2021-03-03] MEDS: AMIODARONE 100 MG TAB PO SCH (07:55)
--- NOTE | 2021-03-03 10:16 | CT ---
EXAMINATION TYPE: CT biopsy liver DATE OF EXAM: 03/03/2021 COMPARISON: NONE HISTORY: Multiple liver masses CT DLP: 682mGycm The procedure was explained to the patient. The risks, complications, benefits, and alternatives wer e discussed and any questions were answered. Informed consent was obtained. Patient was placed supi ne on the CT table and prepped and draped in the usual sterile fashion. All elements of maximal barrier and sterile technique utilized. Utilizing CT guidance, an 18 gauge core biopsy needle access into the left lobe of the liver was ach ieved and two18 gauge core sample was obtained. The patient was stable throughout the procedure and remained stable upon discharge. IMPRESSION: 1. Successful 18 gauge core biopsy of the liver.
[2021-03-03 10:24] VITALS: PULSE 73
[2021-03-03 13:39] VITALS: BP 115/80; RESP 16; TEMP 97.8
[2021-03-03] MEDS: SODIUM CHLORIDE 0.9% 1,000 ML IV SCH (16:58)
--- NOTE | 2021-03-05 10:13 | P.DS ---
Providers Date of admission: 02/28/21 15:07 Expected date of discharge: 03/03/21 Attending physician: Ingrid Negrete MD Consults: 02/28/21 15:08 Consult Physician Routine Consulting Provider: Eleuterio Del Toro Consult Reason/Comments: liver mass Do you want consulting provider notified?: Yes Consult Physician Routine Consulting Provider: Nikhil Enriquez Consult Reason/Comments: Liver mass Do you want consulting provider notified?: Yes Primary care physician: Melchor Yip Hospital Course: Final diagnosis Intractable abdominal pain possibly related to metastatic liver disease Liver masses possible metastatic disease status post biopsy and results pending Hypertension Atrial fibrillation currently rate controlled DVT prophylaxis Full code Discharge disposition Patient is being discharged in a stable condition with guarded prognosis to home. Patient will follow-up with Dr. Yip in the outpatient setting upon discharge. She is to also follow-up with oncology for biopsy results. She also the follow-up outpatient for MRI of the brain and a prescription was provided. Total time taken is greater than 35 minutes. Hospital course 56-year-old male with history of atrial fibrillation, hypertension, presenting for evaluation of abdominal pain and distention. Patient states that this is been present for approximately one week. He has had stool output but states that this has not been normal. He's not had any vomiting. No fever. Pain is predominantly upper abdomen and into the right flank. No dysuria or hematuria. Workup completed in ED blood work revealed sodium 133, potassium 4.3, BUN/creatinine of 20/60.64 lactic acid level of 1.6, AST/ALT of 225/112, total bilirubin of 1.2; WBC elevated at 11.6, hemoglobin 12.7 and platelet count of 35 4, UA is positive for nitrites, bacteria and WBCs CT of abdomen is completed which reveals multiple liver masses with suspected metastatic diseas 03/02/2021 Patient is seen and evaluated sitting up in bed; family is at bedside Vital signs are stable temperature 97.3, pulse 62, respiration 20 and blood pressure 130/79 CT of the chest reveals lung nodule suspicious for primary lung cancer IR has been consulted for biopsy of metastatic site possibly liver Oncology on board and agreeable with plan Continue with IV narcotics for pain control This is a 62-year-old male who was recently admitted and was being closely monitored. 03/03/2021 Patient was seen in follow-up this morning with no acute overnight issues. Patient is tolerating diet with no nausea or vomiting noted. Patient's abdomin al pain appears to be improved. Patient underwent liver biopsy and oncology following. Patient will follow-up outpatient for test results and treatment plan moving further. MRI of the brain was ordered and a prescription was provided to have this outpatient. Currently no reports of chest pain, shortness of breath, or palpitations. Patient is afebrile. No reports of nausea or vomiting and patient is tolerating diet. Patient will be discharged home today. Guarded prognosis. Physical exam: GENERAL: The patient is alert and oriented x3, not in any acute distress. Well developed, well nourished. HEENT: Pupils are round and equally reacting to light. EOMI. No scleral icterus. No conjunctival pallor. Normocephalic, atraumatic. No pharyngeal erythema. No thyromegaly. CARDIOVASCULAR: S1 and S2 present. No murmurs, rubs, or gallops. PULMONARY: Chest is clear to auscultation, no wheezing or crackles. ABDOMEN: Soft, nontender, nondistended, normoactive bowel sounds. No palpable organomegaly. MUSCULOSKELETAL: No joint swelling or deformity. EXTREMITIES: No cyanosis, clubbing, or pedal edema. NEUROLOGICAL: Gross neurological examination did not reveal any focal deficits. SKIN: No rashes. Please refer to medication reconciliation sheet for a list of medications. Patient Condition at Discharge: Stable Plan - Discharge Summary New Discharge Prescriptions: New HYDROcodone/APAP 5-325MG [[place] 5-325] 1 tab PO Q6HR PRN 3 Days #12 tab PRN Reason: Pain Nicotine 21Mg/24Hr Patch [Habitrol] 1 patch TRANSDERM DAILY #30 patch oxyCODONE HCL [OxyIR] 10 mg PO TID #12 tab Thiamine [Vitamin B-1] 100 mg PO BID-W/MEALS 30 Days #30 tab Continue Multivitamins, Thera [Multivitamin (formulary)] 1 tab PO DAILY Spironolactone [Aldactone] 25 mg PO DAILY #30 tab Metoprolol Succinate (ER) [Toprol XL] 25 mg PO DAILY Amiodarone [Cordarone] 100 mg PO DAILY lisinopriL [Zestril] 2.5 mg PO DAILY Discharge Medication List Multivitamins, Thera [Multivitamin (formulary)] 1 tab PO DAILY 01/31/20 [History] Spironolactone [Aldactone] 25 mg PO DAILY #30 tab 02/09/20 [Rx] Amiodarone [Cordarone] 100 mg PO DAILY 02/28/21 [History] Metoprolol Succinate (ER) [Toprol XL] 25 mg PO DAILY 02/28/21 [History] lisinopriL [Zestril] 2.5 mg PO DAILY 02/28/21 [History] HYDROcodone/APAP 5-325MG [[place] 5-325] 1 tab PO Q6HR PRN 3 Days #12 tab 03/03/21 [Rx] Nicotine 21Mg/24Hr Patch [Habitrol] 1 patch TRANSDERM DAILY #30 patch 03/03/21 [Rx] Thiamine [Vitamin B-1] 100 mg PO BID-W/MEALS 30 Days #30 tab 03/03/21 [Rx] oxyCODONE HCL [OxyIR] 10 mg PO TID #12 tab 03/03/21 [Rx] Follow up Appointment(s)/Referral(s): Melchor Yip DO [Primary Care Provider] - 1-2 days Eleuterio Del Toro MD [STAFF PHYSICIAN] - 1 Week Patient Instructions/Handouts: Hydrocodone/Acetaminophen (By mouth), Thiamine (By mouth), Nicotine (Absorbed through the skin), Oxycodone, Rapid Release (By mouth), Percutaneous Liver Biopsy (DC), Alcohol Intoxication (DC), Abuse of Alcohol (DC), At-Risk Alcohol Use (DC), Alcohol Withdrawal (DC), Alcohol Dependence (DC) Activity/Diet/Wound Care/Special Instructions: Activity Limited until follow-up follow up With primary care provider on discharge Follow-up with oncology this week Patient to have MRI outpatient of the brain Continue taking medications as prescribed Continue regular diet PLEASE CALL mri TO SCHEDULE BRAIN MRI at . Discharge Disposition: HOME SELF-CARE
== END 2021-03-03 17:13 | disposition home or self-care (01) ==
LOC: EC 12:11 → 5NMEDONC 15:07 → INTOOBSV 15:07 → 5NMEDONC 16:56 → UNDODISIN 03-03 17:13
PROVIDERS: ADMIT Internal Medicine; ATTEND Internal Medicine
DX: R10.9 Unspecified abdominal pain (principal); R14.0 Abdominal distension (gaseous); C78.7 Secondary malignant neoplasm of liver and intrahepatic bile duct; I10 Essential (primary) hypertension; I48.91 Unspecified atrial fibrillation; R91.1 Solitary pulmonary nodule; D72.829 Elevated white blood cell count, unspecified; F10.10 Alcohol abuse, uncomplicated; R31.9 Hematuria, unspecified; F17.210 Nicotine dependence, cigarettes, uncomplicated; Z20.822 Contact with and (suspected) exposure to COVID-19; Z79.01 Long term (current) use of anticoagulants; Z79.899 Other long term (current) drug therapy; Z71.9 Counseling, unspecified; Z83.3 Family history of diabetes mellitus; Z82.49 Family history of ischemic heart disease and other diseases of the circulatory system; Z80.3 Family history of malignant neoplasm of breast
CPT/HCPCS: 96376 ×4; 96372; 96375; 96361; 96374; 99285; 36415; 83921; 80053; 80048; 80076; 82607; 82150; 82746; 83605; 83690; 85025 ×2; 85610 ×2; 85730; 81001; 88342; 88307; 88341; 82105; 80320; 87635; 47000; 77012; 71260; 74177; G0378 ×4; S4990 ×3; J2270 ×4; J3411; J2405 ×2; Q9967 ×3

== ENCOUNTER → 2021-03-22 | Outpatient (CLI) | payer OTHER ==
--- NOTE | 2021-03-22 11:33 | MR ---
MRI brain without contrast. HISTORY: Lung cancer and headaches COMPARISON: None. TECHNIQUE: Multiecho multiplanar images of the brain were obtained without contrast. FINDINGS: On the T1-weighted sagittal images midline structures including the craniovertebral junction relation ships are normal. The ventricles, basal cisterns and sulci over the convexities are within normal limits and there is n o mass effect or shift of the midline structures. There are mild to moderate scattered multifocal areas of abnormal increased signal intensity in the w jie matter of both cerebral hemispheres on the FLAIR images which are nonspecific and most likely re present chronic ischemic change. Based on diffusion-weighted imaging, there is no acute ischemic even t. The posterior fossa including the brainstem, fourth ventricle and cerebellar pontine angles appear no rmal. The intraorbital contents are normal and symmetric. Visualized paranasal sinuses and mastoid air cell s are well aerated. IMPRESSION: Nonspecific white matter abnormalities most likely reflecting chronic ischemic change with no acute i schemic event, mass effect or shift of the midline structures.
== END | disposition home or self-care (01) ==
LOC: RADMRIMAIN 09:46
PROVIDERS: ATTEND Internal Medicine Hematology & Oncology
DX: C34.91 Malignant neoplasm of unspecified part of right bronchus or lung (principal); R93.0 Abnormal findings on diagnostic imaging of skull and head, not elsewhere classified
CPT/HCPCS: 70551